=== PATIENT | female | born 1960 | race Caucasian/White ===

== ENCOUNTER 2017-08-04 10:29 | Outpatient (CLI) | payer MEDICARE, MEDICAID ==
--- NOTE | 2017-08-04 12:21 | RAD ---
2 VIEWS CHEST: Date: 08/04/17 COMPARISON: 09/03/15. HISTORY: Dyspnea. FINDINGS: Two views of the chest show normal sized cardiomediastinal silhouette. There is no evidence of consol idation, mass, or pleural effusion. Degenerative changes are seen in the spine. IMPRESSION: No evidence of acute cardiopulmonary disease. POS: [facility]
== END 2017-08-04 10:30 | disposition home or self-care (01) ==
LOC: RAD 10:29
PROVIDERS: ATTEND Internal Medicine Critical Care Medicine
DX: R06.00 Dyspnea, unspecified (principal)
CPT/HCPCS: 36415; 71046; 85025

== ENCOUNTER 2018-03-07 17:48 | Inpatient (IN) | payer MEDICARE, MEDICAID ==
[~2018-03-07 17:48] MED LIST: ISOVUE-370 76%-LOCM 1 ML ONE
[2018-03-07 18:34] LABS: #Eosinphils 0.1 thou/uL (0.0-0.7); #Lymphocytes 1.6 thou/uL (1.20-3.40); #Monocytes 1.3 thou/uL (0.11-0.59); #Neutrophils 11.5 thou/uL (1.40-6.50); %Basophils 0.1 % (0.0-1.0); %Eosinophils 0.7 % (0.0-10.0); %Neutrophils 79.2 % (42.0-75.0); Hemoglobin 11.3 g/dL (12.0-16.0); Mean Corpuscular HGB CONC 31.2 g/dL (32.0-36.0); Mean Corpuscular Hemoglobin 30.7 pg (27.0-31.0); Mean Corpuscular Volume 98.3 fL (78.0-98.0); Mean Platelet Volume 6.6 fL (7.4-10.4); Platelet Count 269 thou/uL (130-400); RBC Distribution Width 12.6 % (11.5-14.5); Red Blood Cell (RBC) Count 3.69 mill/uL (4.20-5.40); White Blood Cell (WBC) Count 14.5 thou/uL (4.8-10.8)
[2018-03-07 19:01] LABS: CKMB 0.5 ng/mL (0-6.6); Troponin I Less than 0.010 ng/mL (< 0.028)
--- NOTE | 2018-03-07 19:02 | RAD ---
PORTABLE CHEST: HISTORY: Shortness of breath times several hours. COMPARISON: 03/24/2014 FINDINGS: Heart size is enlarged. Lungs are clear of infiltrates. There are no signs of failure. IMPRESSION: Cardiomegaly. POS: COURT
[2018-03-07 19:06] LABS: ALT (SGPT) 10 U/L (8-55); AST (SGOT) 10 U/L (5-34); Alkaline Phosphatase 72 U/L (40-150); Anion Gap 15 mmol/L (10-20); BUN (Urea Nitrogen) 13 mg/dL (9.8-20.1); Bilirubin, Total 0.4 mg/dL (0.2-1.2); CK (CPK) 30 U/L (29-168); Calc. Creatinine Clearance 0 mL/min (70-130); Calcium 9.3 mg/dL (7.8-10.44); Carbon Dioxide 30 mmol/L (22-29); Chloride 97 mmol/L (98-107); Estimated GFR-MDRD 71; Globulin 3.7 g/dL (2.4-3.5); Glucose 199 mg/dL (70-105); Potassium 3.9 mmol/L (3.5-5.1); Protein, Total 7.7 g/dL (6.0-8.3); Sodium 138 mmol/L (136-145)
--- NOTE | 2018-03-07 19:54 | CT ---
CT ANGIO CHEST PERFORMED WITH INTRAVENOUS CONTRAST ENHANCEMENT WITH 3D RECONSTRUCTIONS: HISTORY: Shortness of breath. FINDINGS: The lung bases show atelectatic changes and some patchy pneumonitis type change. Areas of slightly g reater consolidation within the right base may just be on the basis of some atelectasis related to mu cus plugging or possibly consolidation related to pneumonia. These changes are less likely felt to b e on the basis of mass but would require followup, particularly the right lower lobe changes. There is fair pulmonary artery opacification. Body habitus limits detail peripherally, but no defini tive CT evidence for pulmonary embolus. The visualized liver parenchyma shows no focal abnormalities. Postoperative changes of the stomach a re seen. IMPRESSION: 1. No CT evidence for pulmonary embolus. 2. Bibasilar atelectatic lung changes with an area of consolidation within the right lower lobe, sug gesting possible pneumonia or more prominent atelectasis related to mucus plugging. A neoplastic pro cess is considered less likely, but follow-up films would be required. It is difficult to see any of these changes on the recent portable chest examination but probable followup after appropriate thera py with posterior-anterior and lateral chest may be sufficient for assessment. POS: COURT
[2018-03-07 20:31] LABS: Lactic Acid 1.2 mmol/L (0.5-2.2)
[2018-03-07] MEDS ORDERED: HYDROcodone/Acetaminophen 10/325 mg Tablet ONE (20:31)
[2018-03-07] MEDS ORDERED: Piperacillin/Tazobactam 4.5 GM VIAL ONE (20:31)
[2018-03-07] MEDS ORDERED: Ondansetron HCl/PF 4 MG/2 ML Vial IVP PRN (21:45)
[2018-03-07] MEDS ORDERED: Acetaminophen 325 MG TAB PO PRN (21:45)
[2018-03-07] MEDS ORDERED: Ondansetron ODT 4 MG TAB SL PRN (21:45)
[2018-03-07 21:56] VITALS: BMI 38.3
[2018-03-07 21:57] LABS: Troponin I Less than 0.010 ng/mL (< 0.028)
[2018-03-08] MEDS ORDERED: ALPRAZolam 1 MG TAB PO PRN (00:53)
[2018-03-08] MEDS ORDERED: Bisacodyl 5 MG TAB PO PRN (00:54)
[2018-03-08] MEDS ORDERED: Dextrose 50% Abboject 50 ML SYRINGE SLOW IVP PRN (00:54)
[2018-03-08] MEDS ORDERED: Dextrose 5% in Water 1,000 ML IV PRN (00:54)
[2018-03-08] MEDS ORDERED: HumaLOG 300 UNITS/3 ML VIAL SC PRN (00:54)
[2018-03-08 01:31] LABS: Troponin I Less than 0.010 ng/mL (< 0.028)
[2018-03-08] MEDS: HYDROcodone/Acetaminophen 10/325 mg Tablet PO PRN ×4 (02:13→21:34)
[2018-03-08 03:03] LABS: #Lymphocytes 0.8 thou/uL (1.20-3.40); #Monocytes 1.1 thou/uL (0.11-0.59); #Neutrophils 14.2 thou/uL (1.40-6.50); %Basophils 0.1 % (0.0-1.0); %Eosinophils 0.3 % (0.0-10.0); %Lymphocytes 4.9 % (21.0-51.0); %Neutrophils 87.7 % (42.0-75.0); Hemoglobin 10.8 g/dL (12.0-16.0); Mean Corpuscular HGB CONC 31.8 g/dL (32.0-36.0); Mean Corpuscular Hemoglobin 31.3 pg (27.0-31.0); Mean Corpuscular Volume 98.6 fL (78.0-98.0); Platelet Count 268 thou/uL (130-400); RBC Distribution Width 12.8 % (11.5-14.5); Red Blood Cell (RBC) Count 3.44 mill/uL (4.20-5.40); White Blood Cell (WBC) Count 16.2 thou/uL (4.8-10.8)
[2018-03-08 03:11] LABS: Anion Gap 15 mmol/L (10-20); BUN (Urea Nitrogen) 11 mg/dL (9.8-20.1); Calc. Creatinine Clearance 138 mL/min (70-130); Calcium 9.4 mg/dL (7.8-10.44); Carbon Dioxide 27 mmol/L (22-29); Chloride 99 mmol/L (98-107); Estimated GFR-MDRD 78; Glucose 202 mg/dL (70-105); Potassium 4.1 mmol/L (3.5-5.1); Sodium 137 mmol/L (136-145)
--- NOTE | 2018-03-08 05:22 | HP ---
CHIEF COMPLAINT: Shortness of breath. HISTORIAN: The patient. HISTORY OF PRESENT ILLNESS: This is a 58-year-old female with past medical history of breast CA, chr onic back pain, diabetes mellitus type 2, hyperlipidemia, hypertension, COPD, JS, being admitted for shortness of breath which occurred on the day of admission. Per patient, she was lying in bed, watc mika TV when she started having trouble with her breathing. The patient was using her breathing checo tment; however, it was not helping. Per records, patient recently had an echo done which showed no s igns of chronic heart failure. The patient states that she was really gasping for air during the who le episode and she was very scared that is why she called 911 for her to be brought to the hospital. The patient stated that she has had this episode in the past and patient admits to having sleep apne a that she used BiPAP for. Of note, patient received some breathing treatments en route to the [facility]. REVIEW OF SYSTEMS: Positive for shortness of breath with associated cough and productive sputum. Ot herwise, as documented in the HPI. All other systems were reviewed and were negative. PAST MEDICAL HISTORY: Chronic back pain, breast CA bilaterally, spinal stenosis, diabetes mellitus t ype 2, hyperlipidemia, hypertension, COPD, JS, wears BiPAP at night, obesity, and seizures. PAST SURGICAL HISTORY: Right tib-fib surgery, ventral hernia repair, cervical and lumbar surgery in the past, hysterectomy, mastectomy on both breasts. PSYCHIATRIC HISTORY: The patient is schizophrenic and paranoid. SOCIAL HISTORY: Patient lives at home. The patient denies any illicit drugs. The patient states th at she is a former smoker. She quit about 20 years ago. ALLERGIES: CODEINE, CYMBALTA, GABAPENTIN, LYRICA. CURRENT MEDICATIONS: The patient is on Januvia 100 mg orally, Lipitor 10 mg daily, metformin 1000 mg daily, Clozaril at bedtime, lamotrigine 25 mg b.i.d., metoprolol tartrate 25 mg daily, iron 65 mg, v itamin C 1 gram, [place], Ambien 10 mg, BuSpar 30 mg, Xanax 0.5 mg, Toujeo insulin glargine 20 units. PHYSICAL EXAMINATION: VITAL SIGNS: Blood pressure 146/111, pulse 125, respiratory rate of 26, temperature of 98.7, O2 sat 99 on BiPAP. GENERAL: The patient is lying in bed, had a BiPAP machine on. However, the patient was able to spea k in full sentences with the BiPAP off. The patient is obese, has a large neck mass. HEENT: Normocephalic, atraumatic. Pupils are equally round and reactive to light. Extraocular move ments are intact. No scleral icterus. Mucous membranes are moist. NECK: Mass is enlarged. LUNGS: The patient has some rhonchi in bilateral lower lobes. CARDIOVASCULAR: Patient is tachycardic. Regular rate and rhythm. No murmurs appreciated. ABDOMEN: Obese abdomen. Soft, nontender, positive bowel sounds in all quadrants. No masses palpate d. Abdomen is nondistended. No rigidity, no guarding. EXTREMITIES: Upper extremities and lower extremities: 5/5 upper extremity strength, 5/5 lower extre mity strength, good pulses in the upper extremities and lower extremities bilaterally. NEUROLOGIC: Cranial nerves II through XII grossly intact. No focal neurologic deficits noted. SKIN: Normal, warm, dry, and intact. No rashes. PSYCHIATRIC: Normal affect, alert and oriented x3. IMAGING: A 12-lead EKG showed a rate of 125, sinus tachycardia. ED COURSE: The patient was given Zosyn, [place], and Levaquin. LABORATORY DATA AND DIAGNOSTIC DATA: WBC 14.5, hemoglobin 11.3, hematocrit is 36.3, platelet count i s 269. D-dimer is 1.73. Sodium 138, potassium 3.9, chloride 97, carbon dioxide of 30, anion gap of 15, BUN is 13, creatinine 0.82, GFR 71, glucose 119. Chest x-ray showed cardiomegaly. Chest CTA shena wed no CTA evidence of pulmonary embolus. There is bibasilar atelectasis lung changes with area of c onsolidation within the right lower lobe suggesting possible pneumonia or more prominent atelectasis related to mucus plugging and neoplastic process is considered less likely, but follow up films will be required. It is difficult to see any of these changes on the recent portable chest examination an d portable follow up after appropriate therapy with posterior, anterior, and lateral chest may be suf ficient for assessment. ASSESSMENT AND PLAN: 1. This is a 58-year-old female who has been admitted for chronic obstructive pulmonary disease exac erbation. Patient is having chronic cough with productive sputum. The patient has been started on a ntibiotics. We will continue the patient on antibiotics. Tool Engine Lathe Set Up Operator has been consulted. We will follow up arc cutter's recommendations. We will continue DuoNeb treatments. We will give the jalil Hahn as well. 2. Pneumonia. Per CT of the chest, patient did have possible pneumonia. The patient is currently o n antibiotics. At this time, we will continue patient on antibiotics. 3. History of hypertension. We will monitor blood pressure. We will continue patient on home medic ations. 4. Obstructive sleep apnea. We will take the patient off BiPAP and will start patient on CPAP and w e will titrate patient's oxygen saturation between 88 and 92. 5. Chronic back pain, stable at this time. 6. Diabetes mellitus type 2. We will do insulin sliding scale. We will start the patient on insuli n medication. 7. Hyperlipidemia. We will continue patient on her current regimen. 8. Deep venous thrombosis and gastrointestinal prophylaxis. We will do Lovenox.
[2018-03-08] MEDS: Mometasone/Formoterol 120 PUFF INHALER INH SCH ×2 (07:14→18:33)
[2018-03-08] MEDS: Alogliptin 25 MG TAB PO SCH (08:50)
[2018-03-08] MEDS: lamoTRIgine 25 MG TAB PO SCH ×2 (08:50→21:01)
[2018-03-08] MEDS: Enoxaparin Sodium 40 MG/0.4 ML SYRINGE SC SCH (08:51)
[2018-03-08] MEDS: Atorvastatin Calcium 10 MG TAB PO SCH (08:51)
[2018-03-08] MEDS: busPIRone HCl 10 MG TAB PO SCH ×2 (08:51→21:02)
[2018-03-08] MEDS: Insulin Glargine 20 UNITS in Pre-Filled Syringe 1 EACH SC SCH (08:59)
[2018-03-08] MEDS ORDERED: INSULIN GLARGINE HUM REC ANLOG 20 UNIT SQ SCH (09:00)
--- NOTE | 2018-03-08 14:04 | PDOC.EVN ---
Event Note - Event Note Event Note: Feeling better overall. Breathing is better. Has had recurrent episodes of SOB for a year. Followed by Dr. Yates. Presents with SOB. CT with evidence of pneumonia and atelectasis. Continue nebs, oxygen, antibiotics. Pulm. consult pending.
[2018-03-08] MEDS ORDERED: CLOZAPINE 400 MG PO SCH (21:00)
--- NOTE | 2018-03-08 22:24 | CON ---
DATE OF CONSULTATION: 03/08/2018 HISTORY OF PRESENT ILLNESS: Bozena Peña is a pleasant 58-year-old female with history of obstructi ve lung disease. She says she has been short of breath for the past year. She is quite inactive bas ed on what she has relayed to me. She says she only gets out of the house once a week and she does n o exercise. She says she is always short of breath. She says she is feeling a little better than she did on admission. PAST MEDICAL HISTORY: 1. Remarkable for diabetes. 2. Lipid disorder. 3. Hypertension. 4. Chronic obstructive pulmonary disease. 5. History of breast cancer 6. History of sleep apnea. 7. History of obesity. 8. History of spinal stenosis. 9. History of tib-fib surgery in the past. 10. History of herniorrhaphy in the past. 11. History of cervical spine, lumbar spine surgery. 12. Status post hysterectomy. 13. Status post bilateral mastectomy. 14. History of paranoid schizophrenia. SOCIAL HISTORY: She is a nonsmoker, nondrinker, does not use drugs. ALLERGIES: Reports CODEINE, CYMBALTA, GABAPENTIN, LYRICA intolerance. MEDICATIONS: Prior to admission Januvia, Lipitor, metformin, Clozaril, lamotrigine, metoprolol, iron , vitamin C, Ambien, BuSpar, Toujeo. PHYSICAL EXAMINATION: VITAL SIGNS: She is afebrile, heart rate is 97, respiratory rate 16, oximetry is 96 on 3 liters, blo od pressure 116/70. She is in absolutely no distress. HEENT: Pupils reactive. Sclerae is anicteric. Extraocular movements appear to be full. NECK: Supple, no lymphadenopathy. LUNGS: Clear. HEART: Regular rhythm. S1 and S2 are normal. ABDOMEN: Soft and nontender. No masses. EXTREMITIES: No clubbing, cyanosis, or edema. NEUROLOGIC: Grossly nonfocal. IMAGING: CT is reviewed of the chest after a chest radiograph was done. She has infrahilar fullness that has the appearance of a mass on the right. She has bibasilar atelectatic changes. IMPRESSION: 1. Pneumonia. 2. Chronic obstructive pulmonary disease. 3. ? Lung mass. This will obviously need to be followed until it is clear. PLAN: Continue with nebulizer treatments and antibiotics. She is not on any steroids at this time, so these will be added in. I will be happy to follow with the other physicians caring for her.
[2018-03-09] MEDS: Mometasone/Formoterol 120 PUFF INHALER INH SCH ×2 (07:48→18:54)
--- NOTE | 2018-03-09 09:14 | PRG ---
DATE OF SERVICE: 03/09/2018 She is about the same. She has improved from the standpoint she is no longer needing the BiPAP. PHYSICAL EXAMINATION: VITAL SIGNS: Temperature 97.3, pulse 90, respirations 15, pulse ox 97% on 2 liters. HEENT: Unremarkable. NECK: No JVD. LUNGS: She has crackles in the right base. CARDIAC: S1 and S2 regular. ABDOMEN: Soft. EXTREMITIES: No edema. LABORATORY: No new labs were done today. ASSESSMENT: 1. Right lower lobe pneumonia. 2. Chronic obstructive pulmonary disease. PLAN: 1. Continue Levaquin and prednisone, and breathing treatments. 2. She should use CPAP at night. 3. Transfer to the medical floor. Probably needs a couple more days in the hospital.
[2018-03-09] MEDS: Saccharomyces boulardii 250 MG CAP PO SCH ×2 (09:16→20:44)
[2018-03-09] MEDS: busPIRone HCl 10 MG TAB PO SCH ×2 (09:16→20:44)
[2018-03-09] MEDS: Alogliptin 25 MG TAB PO SCH (09:16)
[2018-03-09] MEDS: Atorvastatin Calcium 10 MG TAB PO SCH (09:17)
[2018-03-09] MEDS: lamoTRIgine 25 MG TAB PO SCH ×2 (09:17→20:48)
[2018-03-09] MEDS: Enoxaparin Sodium 40 MG/0.4 ML SYRINGE SC SCH (09:18)
[2018-03-09] MEDS: Insulin Glargine 20 UNITS in Pre-Filled Syringe 1 EACH SC SCH (09:18)
[2018-03-09] MEDS: HYDROcodone/Acetaminophen 10/325 mg Tablet PO PRN ×3 (09:21→19:41)
[2018-03-09] MEDS: predniSONE 20 MG TAB PO SCH ×2 (09:22→20:44)
--- NOTE | 2018-03-09 09:33 | PDOC.PN ---
- Subjective Encounter Start Date: 03/09/18 Encounter Start Time: 09:30 Doing well. Feels better. - Objective Resuscitation Status: Resuscitation Status FULL:Full Resuscitation Vital Signs & Weight: Vital Signs (12 hours) Temp Pulse Resp BP Pulse Ox 03/09/18 08:17 97 03/09/18 07:49 99 03/09/18 07:46 90 15 99 03/09/18 07:33 97.3 F L 88 17 116/67 97 03/09/18 04:00 97.0 F L 85 18 120/72 100 03/09/18 00:00 97.1 F L 89 15 111/65 96 03/08/18 23:13 96 Weight Weight 253 lb 4.978 oz I&O: 03/08/18 03/09/18 03/10/18 06:59 06:59 06:59 Intake Total 510 410 Output Total 600 725 Balance -90 -315 Result Diagrams: 03/08/18 00:47 03/08/18 00:47 Additional Labs: Accuchecks 03/09/18 03/08/18 03/08/18 06:08 20:07 16:27 POC Glucose 117 H 144 H 170 H 03/08/18 10:34 POC Glucose 138 H Phys Exam - Physical Examination Constitutional: NAD Obese Respiratory: no wheezing, no rales, no rhonchi, clear to auscultation bilateral Cardiovascular: RRR, no significant murmur Gastrointestinal: soft, non-tender, no distention, positive bowel sounds Musculoskeletal: no edema Psychiatric: normal affect, A&O x 3 Dx/Plan (1) Pneumonia Code(s): J18.9 - PNEUMONIA, UNSPECIFIED ORGANISM Status: Acute Comment: Levaquin (2) COPD (chronic obstructive pulmonary disease) with emphysema Code(s): J43.9 - EMPHYSEMA, UNSPECIFIED Status: Chronic Comment: Nebs, steroids, oxygen (3) Diabetes type 2, controlled Code(s): E11.9 - TYPE 2 DIABETES MELLITUS WITHOUT COMPLICATIONS Status: Chronic Comment: Insulin (4) Generalized weakness Status: Chronic Comment: PT (5) JS (obstructive sleep apnea) Code(s): G47.33 - OBSTRUCTIVE SLEEP APNEA (ADULT) (PEDIATRIC) Status: Chronic Comment: CPAP - Plan * Transfer to floor
--- NOTE | 2018-03-09 15:12 | PQF ---
DATE: 03-09-18 ATTN: DR. DRAGAN MONTEJO Please exercise your independent, professional judgment in responding to the clarification form. Clinical indicators are provided on the bottom of this form for your review Please check appropriate box(s): [ ] Acute Respiratory Failure: [ ] with Hypoxia[ ] with Hypercapnia [ ] Acute Respiratory Failure due to: (etiology) [ x] Other diagnosis COPD exac [ ] Unable to determine In addition, please specify: Present on Admission (POA): [ ] Yes [ ] No [ ] Unable to determine For continuity of documentation, please document condition throughout progress notes and discharge summary. Thank You. CLINICAL INDICATORS - SIGNS / SYMPTOMS / LABS ER DX: PNEUMONIA, RESPIRATORY DISTRESS, SEPSIS ER: CAME IN FOR SOB, HAS TROUBLE TRYING TO COUGH AND HAS BEEN TAKING HER BREATHING TREATMENTS, WEARS CPAP AT NIGHT, MODERATE RESPIRATORY DISTRESS, RHONCHI PRESENT TO BILATERAL LOWER LOBES H&P: PT STATED THAT SHE WAS REALLY GASPING FOR AIR DURING THE WHOLE EPISODE AND SHE WAS VERY SCARED THAT IS WHY SHE CALLED 911 H&P: COPD EXACERBATION, PNEUMONIA, OBSTRUCTIVE SLEEP APNEA. WE WILL TAKE THE PATIENT OFF BIPAP AND WILL START PATIENT ON CPAP AND WE WILL TITRATE PATIENTS OXYGEN SAT BETWEEN 88-92. RESPIRATORY ASSESSMENT: 03-07-18: BIPAP 100% 03-08-18: O2 3L NC 94% 03-09-18: 02 2L NC 97% RISK FACTORS: H&P: PT STATED THAT SHE WAS REALLY GASPING FOR AIR DURING THE WHOLE EPISODE AND SHE WAS VERY SCARED THAT IS WHY SHE CALLED 911 H&P: COPD EXACERBATION, PNEUMONIA, OBSTRUCTIVE SLEEP APNEA. ER: WEARS CPAP AT NIGHT, TREATMENTS: MAR: DULERA INHALER, DUONEBS, PREDNISONE, SOLUMEDROL, LEVAQUIN RESPIRATORY ASSESSMENT: 03-07-18: BIPAP 100% 03-08: O2 3L NC 94% 03-09: 02 2L NC 97% (This form is maintained as a part of the permanent medical record) 2014 [employer]. All Rights Reserved MYNOR [email or web address] Office: [phone] [facility]
[2018-03-10] MEDS: HYDROcodone/Acetaminophen 10/325 mg Tablet PO PRN ×4 (07:09→23:45)
[2018-03-10] MEDS: Mometasone/Formoterol 120 PUFF INHALER INH SCH ×2 (07:52→22:21)
--- NOTE | 2018-03-10 08:55 | PRG ---
DATE OF SERVICE: 03/10/2018 She feels better, but does not feel up to going home yet. PHYSICAL EXAMINATION: VITAL SIGNS: Temperature is 97.0, pulse 80, respirations 16, O2 sat 96% on 2 liters, blood pressure 111/73. HEENT: Unremarkable. NECK: No JVD. LUNGS: A few crackles in the right base. CARDIAC: S1 and S2 regular. ABDOMEN: Soft. EXTREMITIES: No edema. LABORATORY DATA: No labs were done today. ASSESSMENT: 1. Right lower lobe pneumonia. 2. Chronic obstructive pulmonary disease. PLAN: The patient has orders to transfer to the medical floor, but that has not been done yet. She will continue CPAP at night for obstructive sleep apnea. She is on prednisone and antibiotics. I wo uld assume she could probably go home tomorrow.
[2018-03-10] MEDS: Saccharomyces boulardii 250 MG CAP PO SCH ×2 (08:58→21:31)
[2018-03-10] MEDS: predniSONE 20 MG TAB PO SCH ×2 (08:58→21:30)
[2018-03-10] MEDS: Alogliptin 25 MG TAB PO SCH (08:58)
[2018-03-10] MEDS: Enoxaparin Sodium 40 MG/0.4 ML SYRINGE SC SCH (08:59)
[2018-03-10] MEDS: lamoTRIgine 25 MG TAB PO SCH ×2 (08:59→21:30)
[2018-03-10] MEDS: Atorvastatin Calcium 10 MG TAB PO SCH (08:59)
[2018-03-10] MEDS: busPIRone HCl 10 MG TAB PO SCH ×2 (08:59→21:30)
[2018-03-10] MEDS: Insulin Glargine 20 UNITS in Pre-Filled Syringe 1 EACH SC SCH (09:31)
--- NOTE | 2018-03-10 09:57 | PDOC.PN ---
- Subjective Encounter Start Date: 03/10/18 Encounter Start Time: 09:10 Doing better. Was able to get up walk in the cuellar yesterday. Went well, but still weak and ASENCIO. - Objective Resuscitation Status: Resuscitation Status FULL:Full Resuscitation Vital Signs & Weight: Vital Signs (12 hours) Temp Pulse Resp BP Pulse Ox 03/10/18 07:52 80 16 03/10/18 07:42 96 03/10/18 07:41 97.0 F L 82 18 111/73 94 L 03/10/18 04:00 97.2 F L 75 16 122/71 100 03/10/18 02:12 77 18 99 03/10/18 00:00 97.2 F L 73 14 126/77 99 03/09/18 23:57 75 15 99 Weight Weight 239 lb 13.807 oz I&O: 03/09/18 03/10/18 03/11/18 06:59 06:59 06:59 Intake Total 410 1380 Output Total 725 1300 Balance -315 80 Result Diagrams: 03/08/18 00:47 03/08/18 00:47 Additional Labs: Accuchecks 03/10/18 03/09/18 03/09/18 06:42 20:36 16:44 POC Glucose 148 H 221 H 180 H 03/09/18 10:40 POC Glucose 121 H Phys Exam - Physical Examination Constitutional: NAD Obese. Respiratory: no wheezing, no rales, no rhonchi, clear to auscultation bilateral Cardiovascular: RRR, no significant murmur Gastrointestinal: soft, non-tender, no distention, positive bowel sounds Musculoskeletal: no edema Psychiatric: normal affect, A&O x 3 Dx/Plan (1) Pneumonia Code(s): J18.9 - PNEUMONIA, UNSPECIFIED ORGANISM Status: Acute Comment: Levaquin (2) COPD (chronic obstructive pulmonary disease) with emphysema Code(s): J43.9 - EMPHYSEMA, UNSPECIFIED Status: Chronic Comment: Nebs, steroids, oxygen (3) Diabetes type 2, controlled Code(s): E11.9 - TYPE 2 DIABETES MELLITUS WITHOUT COMPLICATIONS Status: Chronic Comment: Insulin (4) Generalized weakness Status: Chronic Comment: PT (5) JS (obstructive sleep apnea) Code(s): G47.33 - OBSTRUCTIVE SLEEP APNEA (ADULT) (PEDIATRIC) Status: Chronic Comment: CPAP - Plan * Continue current plan. * Anticipate discharge tomorrow. * Will need outpatient pulmonary rehab.
--- NOTE | 2018-03-11 08:31 | PRG ---
DATE OF SERVICE: 03/11/2018 The patient remains in the hospital for treatment of pneumonia. She is doing well. She got up and w alked yesterday. Her cough is minimal and she says that she wants to go home. PHYSICAL EXAMINATION: VITAL SIGNS: Temperature 97.9, pulse 89, respirations 18, O2 sat 97%, blood pressure 104/58. HEENT: Unremarkable. NECK: No JVD. LUNGS: Clear without wheezing or rhonchi. CARDIAC: S1 and S2 regular. ABDOMEN: Soft. EXTREMITIES: No edema. ASSESSMENT: 1. Pneumonia. 2. Underlying chronic obstructive pulmonary disease. RECOMMENDATION: 1. Would complete 7 days of antibiotics. 2. Wean prednisone over 2 weeks. 3. She is safe to go home from my standpoint today. She needs to follow up with me in 3 weeks with a chest x-ray.
[2018-03-11] MEDS: Enoxaparin Sodium 40 MG/0.4 ML SYRINGE SC SCH (09:02)
[2018-03-11] MEDS: Alogliptin 25 MG TAB PO SCH (09:02)
[2018-03-11] MEDS: lamoTRIgine 25 MG TAB PO SCH (09:02)
[2018-03-11] MEDS: Atorvastatin Calcium 10 MG TAB PO SCH (09:02)
[2018-03-11] MEDS: Saccharomyces boulardii 250 MG CAP PO SCH (09:03)
[2018-03-11] MEDS: predniSONE 20 MG TAB PO SCH (09:03)
[2018-03-11] MEDS: busPIRone HCl 10 MG TAB PO SCH (09:03)
[2018-03-11] MEDS: Insulin Glargine 20 UNITS in Pre-Filled Syringe 1 EACH SC SCH (09:04)
[2018-03-11] MEDS: HYDROcodone/Acetaminophen 10/325 mg Tablet PO PRN (09:14)
[2018-03-11] MEDS: Mometasone/Formoterol 120 PUFF INHALER INH SCH (10:32)
[2018-03-11 10:59] VITALS: BP 110/60; TEMP 97.8
== END 2018-03-11 11:25 | disposition home or self-care (01) | DRG 194 ==
LOC: ERS 17:48 → IMCU/EMU 21:43 → T4-A 03-10 18:13
PROVIDERS: ADMIT Internal Medicine; ATTEND Internal Medicine
DX: J18.9 Pneumonia, unspecified organism (principal); J44.1 Chronic obstructive pulmonary disease with (acute) exacerbation; F20.0 Paranoid schizophrenia; Z87.891 Personal history of nicotine dependence; E78.00 Pure hypercholesterolemia, unspecified; I10 Essential (primary) hypertension; Z85.3 Personal history of malignant neoplasm of breast; E11.9 Type 2 diabetes mellitus without complications; E78.5 Hyperlipidemia, unspecified; G47.33 Obstructive sleep apnea (adult) (pediatric); E66.9 Obesity, unspecified; R91.8 Other nonspecific abnormal finding of lung field; Z68.37 Body mass index [BMI] 37.0-37.9, adult
CPT/HCPCS: 36415; 36416; 71045; 71275; 80048; 80053; 82550; 82553; 83605; 83880; 84484; 85025; 85379; 87040; 87149; 93005; 94640; 94660; 94760; 96365; 96366; 99292; A4216; G8978-GP-CM; G8979-GP-CK; J1650; J1956; J2543; J2920; J7506; J7620

== ENCOUNTER 2019-02-18 17:26 | Inpatient (IN) | payer MEDICARE, MEDICAID ==
[2019-02-18 18:07] LABS: #Basophils 0.1 thou/uL (0.0-0.2); #Eosinphils 0.1 thou/uL (0.0-0.7); #Monocytes 0.6 thou/uL (0.11-0.59); #Neutrophils 2.8 thou/uL (1.40-6.50); %Basophils 1.4 % (0.0-1.0); %Eosinophils 2.5 % (0.0-10.0); %Lymphocytes 36.2 % (21.0-51.0); %Monocytes 10.2 % (0.0-10.0); %Neutrophils 49.7 % (42.0-75.0); Hemoglobin 11.7 g/dL (12.0-16.0); Mean Corpuscular HGB CONC 33.6 g/dL (32.0-36.0); Mean Corpuscular Hemoglobin 31.8 pg (27.0-31.0); Mean Corpuscular Volume 94.8 fL (78.0-98.0); Mean Platelet Volume 6.3 fL (7.4-10.4); Platelet Count 275 thou/uL (130-400); RBC Distribution Width 13.4 % (11.5-14.5); Red Blood Cell (RBC) Count 3.68 mill/uL (4.20-5.40); White Blood Cell (WBC) Count 5.6 thou/uL (4.8-10.8)
[2019-02-18 18:21] LABS: ALT (SGPT) 16 U/L (8-55); AST (SGOT) 21 U/L (5-34); Albumin 4.6 g/dL (3.4-4.8); Alkaline Phosphatase 52 U/L (40-150); Anion Gap 16 mmol/L (10-20); BUN (Urea Nitrogen) 17 mg/dL (9.8-20.1); Bilirubin, Total 0.5 mg/dL (0.2-1.2); CK (CPK) 56 U/L (29-168); Calc. Creatinine Clearance 0 mL/min (70-130); Calcium 10.6 mg/dL (7.8-10.44); Carbon Dioxide 23 mmol/L (23-31); Chloride 96 mmol/L (98-107); Estimated GFR-MDRD 31; Globulin 2.7 g/dL (2.4-3.5); Glucose 90 mg/dL (80-115); Potassium 4.1 mmol/L (3.5-5.1); Protein, Total 7.3 g/dL (6.0-8.3); Sodium 131 mmol/L (136-145)
--- NOTE | 2019-02-18 18:34 | RAD ---
EXAM: Chest 2 views: HISTORY: Chest pain COMPARISON: 06/15/2018 FINDINGS: There is a normal-sized cardiomediastinal silhouette. There is no evidence of consolidation, mass, or pleural effusion. Degenerative changes are seen in the spine. IMPRESSION: No evidence of acute cardiopulmonary disease
[2019-02-18] MEDS ORDERED: Nitroglycerin 2% Ointment 1 INCH/1 GM Packet ONE (19:17)
[2019-02-18] MEDS ORDERED: Aspirin Chewable 81 MG TAB ONE (19:17)
[2019-02-18 20:04] LABS: Bilirubin Negative (Negative); Blood, Urine Negative (Negative); Clarity Clear (Clear); Glucose, Urine (Dipstick) Normal (Negative); Leukocyte Negative Leu/uL (Negative); Nitrite Negative (Negative); Protein, Urine (Dipstick) Negative (Neg-Trace); Urobilinogen Normal mg/dL (Less than 2)
[2019-02-18] MEDS ORDERED: Acetaminophen 325 MG TAB PO PRN (20:45)
[2019-02-18] MEDS ORDERED: Acetaminophen 500 MG TAB ONE (20:47)
[2019-02-18 21:29] LABS: Troponin I Less than 0.010 ng/mL (< 0.028)
[2019-02-18 22:10] VITALS: BMI 27.0
[2019-02-18] MEDS ORDERED: ALPRAZolam 1 MG TAB PO PRN (23:16)
[2019-02-19 00:31] LABS: Troponin I Less than 0.010 ng/mL (< 0.028)
[2019-02-19] MEDS ORDERED: Zolpidem Tartrate 5 MG TAB PO SCH ×2 (01:30→21:00)
[2019-02-19] MEDS ORDERED: HumaLOG 300 UNITS/3 ML VIAL SC PRN ×2 (01:31)
[2019-02-19] MEDS ORDERED: Dextrose 50% Abboject 50 ML SYRINGE SLOW IVP PRN (01:31)
[2019-02-19] MEDS ORDERED: Dextrose 5% in Water 1,000 ML IV PRN (01:31)
[2019-02-19] MEDS: HYDROcodone/Acetaminophen 10/325 mg Tablet PO PRN ×3 (01:38→19:24)
[2019-02-19] MEDS ORDERED: Acetaminophen 650 MG Suppository PR PRN (02:05)
[2019-02-19] MEDS ORDERED: Ondansetron PF 4 MG/2 ML Vial IVP PRN (02:05)
[2019-02-19] MEDS ORDERED: Sodium Chloride 0.9% 1,000 ML IV SCH ×2 (02:15→06:00)
[2019-02-19] MEDS: Sodium Chloride 0.9% 1,000 ML IV SCH ×2 (04:17→21:05)
[2019-02-19 05:50] LABS: #Eosinphils 0.1 thou/uL (0.0-0.7); #Lymphocytes 1.8 thou/uL (1.20-3.40); #Monocytes 0.5 thou/uL (0.11-0.59); %Basophils 0.3 % (0.0-1.0); %Eosinophils 2.9 % (0.0-10.0); %Lymphocytes 40.8 % (21.0-51.0); %Monocytes 10.5 % (0.0-10.0); %Neutrophils 45.6 % (42.0-75.0); Hemoglobin 10.4 g/dL (12.0-16.0); Mean Corpuscular HGB CONC 34.7 g/dL (32.0-36.0); Mean Corpuscular Hemoglobin 32.9 pg (27.0-31.0); Mean Corpuscular Volume 94.8 fL (78.0-98.0); Mean Platelet Volume 6.4 fL (7.4-10.4); Platelet Count 220 thou/uL (130-400); RBC Distribution Width 13.3 % (11.5-14.5); Red Blood Cell (RBC) Count 3.16 mill/uL (4.20-5.40); White Blood Cell (WBC) Count 4.4 thou/uL (4.8-10.8)
[2019-02-19 06:15] LABS: Anion Gap 14 mmol/L (10-20); BUN (Urea Nitrogen) 16 mg/dL (9.8-20.1); Calc. Creatinine Clearance 45 mL/min (70-130); Calcium 9.6 mg/dL (7.8-10.44); Carbon Dioxide 23 mmol/L (23-31); Chloride 99 mmol/L (98-107); Estimated GFR-MDRD 33; Glucose 78 mg/dL (80-115); Magnesium 1.8 mg/dL (1.6-2.6); Potassium 3.8 mmol/L (3.5-5.1); Sodium 132 mmol/L (136-145)
--- NOTE | 2019-02-19 06:29 | HP ---
TIME OF ADMISSION: 2300 hours. PRIMARY CARE PHYSICIAN: Douglas Sharma MD CHIEF COMPLAINT: Bilateral shoulder and chest pain. HISTORY OF PRESENT ILLNESS: Ms. Peña is a 59-year-old woman, with a known history of diabetes, COPD, hyperlipidemia, and hypertension, who presents complaining of intermittent pain in her shoulders and chest for the last 3 weeks. The patient is a poor historian and unable to explain her symptoms. She gives very vague descriptions stating she has felt "something" on her chest, when asked if it felt like pain, she said she did not know. When asked if it felt like discomfort, she said, "yeah it felt like something was not right." She also reports feeling "sick" for the last few days, but unable to state if it was due to nausea, vomiting, pain, or shortness of breath. Unable to state if she was lightheaded or dizzy. She states she has had discomfort in her right shoulder as well as her left shoulder for the last 3 weeks and at times the pain radiates across her back. She reports having a previous injury to her left shoulder but states the pain today which brought her in is significant in her arm along the biceps region. She has some weakness with movement of the left arm. States there have been times when she has been unable to lift her arm. Previous imaging done of the left upper extremity in 02/2016 with an MRI had demonstrated a mildly displaced avulsion fracture of the greater tuberosity at the supraspinatus tendon insertion which displace medially 15 mm. There was also a second minimally displaced avulsion fracture of the greater tuberosity at the infraspinatus insertion, superior labrum from the glenoid extending into the posterior band of inferior glenohumeral ligament, it was avulsed off the glenoid. There was loss of normal integrity of the axillary pouch. There was a healing fracture to the acromion. The patient denies having any injuries more recently or heavy lifting that would have brought on this pain. She denies any numbness or tingling in her arm or hand. It is very tender to touch. In the emergency department, she was noted to be hypertensive with a blood pressure of 194/76. She was treated for chest pain and given 1000 mg of Tylenol Extra Strength, 325 mg of aspirin, and Nitro-Bid. An EKG was done showing a right bundle-branch block. Heart rate was 58. IMAGING DATA: Chest x-ray done on 02/18/2019 showed no evidence of acute cardiopulmonary disease. PAST MEDICAL HISTORY: 1. CKD. 2. Chronic back pain. 3. History of bilateral breast cancer. 4. Spinal stenosis. 5. Type 2 diabetes mellitus. 6. Hyperlipidemia. 7. Hypertension. 8. COPD. 9. Sleep apnea, uses CPAP at night. 10. Paranoid schizophrenia. 11. Anxiety. PAST SURGICAL HISTORY: 1. Right tib-fib surgery. 2. Left lower leg surgery. 3. Cervical and lumbar spine surgery. 4. Ventral hernia. 5. Multiple inguinal hernia repairs. 6. Hysterectomy. 7. Mastectomy bilaterally. SOCIAL HISTORY: The patient is a former smoker. She denies any tobacco use at present. Denies any alcohol consumption or illicit drug use. ALLERGIES: 1. CODEINE. 2. CYMBALTA. 3. GABAPENTIN. 4. LYRICA. 5. TRAMADOL. CURRENT MEDICATIONS: Unable to verify. PHYSICAL EXAMINATION: GENERAL: The patient appears well developed, well nourished. She is in no acute distress. VITAL SIGNS: Temperature 98.4, pulse 67, respirations 19, O2 saturation 97% on room air, blood pressure 145/67. HEENT: Normocephalic and atraumatic. Pupils are equal, round, reactive to light. Sclerae without icterus. Oropharynx is clear. NECK: Supple. LUNGS: Clear to auscultation bilaterally without wheezes, rales, or rhonchi. CARDIAC: Regular rate and rhythm. ABDOMEN: Soft, nontender, nondistended. Normoactive bowel sounds present. EXTREMITIES: No lower leg swelling or edema. Left upper extremity very tender to light palpation along the lateral upper arm. The patient guarding and asking not to be touched. NEUROLOGIC: Alert and oriented x3. Flat affect. Left upper extremity notable for weakness. Sensation intact. Limited range of motion of the left upper extremity due to weakness and pain. SKIN: Normal. Warm and dry. LABORATORY DATA: White blood count 5.6, hemoglobin 11.7, hematocrit 34.8, platelets 275. Sodium 131, potassium , chloride 96, BUN 17, creatinine 1.66, GFR 31, calcium 10.6. LFTs unremarkable. Troponin negative x2. Urinalysis unremarkable. IMAGING DATA: No intrathoracic abnormalities. IMPRESSION AND PLAN: Ms. Peña is a 59-year-old woman, who has been referred for management of the followin. Chest pain. The patient reports having pain radiating across her chest from the right side to the left which is separate from the pain she is experiencing in her left arm, which is associated with tenderness. She states the chest pain has been going on intermittently for the last 3 weeks. Difficulty obtaining more detailed information including characterization of pain and severity as well as frequency. We will continue to trend troponins. On exam, she definitely has significant tenderness to the left arm and that is what she states brought her in today. We will defer to day team if further cardiac investigations are warranted. With regard to her shoulder pain, she states that is the reason she came into the hospital. She has tenderness on exam. We will order further imaging with an MRI of the cervical spine and left shoulder/upper arm. For her pain, we will resume her home dose of [place]. Continue to monitor. 2. Diabetes mellitus. We will resume home medications once verified. For now, we will initiate insulin sliding scale. 3. Hypertension. We will resume home medications once ensured. 4. Chronic kidney disease. The patient with elevated creatinine at 1.66. We will give gentle IV hydration. 5. Gastrointestinal prophylaxis with famotidine. 6. Deep venous thrombosis prophylaxis with mechanical SCDs. 7. Code status full. Her surrogate decision maker is her son Vicente Nicole. The patient's case discussed with attending who agrees with plan of care as described above. Job ID: [id number]
[2019-02-19] MEDS ORDERED: ALPRAZolam 1 MG TAB PO PRN (07:51)
[2019-02-19] MEDS ORDERED: hydrALAZINE 20 MG/ML VIAL SLOW IVP PRN (07:53)
[2019-02-19] MEDS ORDERED: Loperamide HCl 2 MG CAP PO PRN (07:53)
[2019-02-19] MEDS ORDERED: Calcium Carbonate 500 MG ChewTAB PO PRN (07:53)
[2019-02-19] MEDS ORDERED: Sodium Chloride 0.65% Nasal 44 ML BOT EA NARE PRN (07:53)
[2019-02-19] MEDS ORDERED: Loratadine 10 MG TAB PO PRN (07:53)
[2019-02-19] MEDS ORDERED: Cepastat Lozenges 1 LOZ PO PRN (07:53)
[2019-02-19] MEDS ORDERED: Artificial Tears 18 DROP/0.9 ML EA EYE PRN (07:53)
[2019-02-19] MEDS ORDERED: Diabetic Tussin 200 MG/10 ML UDCUP PO PRN (07:53)
[2019-02-19] MEDS ORDERED: Bisacodyl 5 MG TAB PO PRN (07:53)
[2019-02-19] MEDS ORDERED: Non-Formulary Item 1 EACH (Cyanocobalamin (Vitamin B-12) [Vitamin B-12] 1,000 MCG) PO SCH (09:00)
[2019-02-19] MEDS ORDERED: busPIRone HCl 10 MG TAB PO SCH (09:00)
[2019-02-19] MEDS ORDERED: Non-Formulary Item 1 EACH (Buspirone Hcl [Buspirone Hcl] 30 MG) PO SCH (09:00)
[2019-02-19] MEDS ORDERED: Famotidine/PF 20 mg/2ml Vial SLOW IVP SCH (09:00)
[2019-02-19] MEDS ORDERED: INSULIN GLARGINE HUM REC ANLOG 20 UNIT SQ SCH (09:00)
[2019-02-19] MEDS ORDERED: lamoTRIgine 25 MG TAB PO SCH (09:00)
[2019-02-19] MEDS ORDERED: Non-Formulary Item 1 EACH (Budesonide-Formoterol [Symbicort 160-4.5] 2 PUFF) INH SCH (09:00)
[2019-02-19] MEDS: Cyanocobalamin (Vitamin B-12) 1,000 MCG TAB PO SCH (09:55)
[2019-02-19] MEDS: Aspirin 81 mg Enteric Coated Tablet PO SCH (09:55)
[2019-02-19] MEDS: Atorvastatin Calcium 10 MG TAB PO SCH (09:56)
[2019-02-19] MEDS: Famotidine 20 MG TAB PO SCH (09:56)
[2019-02-19] MEDS: Ondansetron ODT 4 MG TAB PO PRN (11:05)
[2019-02-19] MEDS: ALPRAZolam 0.5 MG TAB PO PRN ×2 (11:06→21:04)
--- NOTE | 2019-02-19 12:03 | PDOC.HOSPP ---
- Subjective Encounter Date: 02/19/19 Encounter Time: 07:15 Subjective: this morning she was having nausea, she was not feeling good, she was not describing well her complaints - Objective Vital Signs & Weight: Vital Signs (12 hours) Temp Pulse Resp BP Pulse Ox 02/19/19 08:23 98.5 F 67 16 186/80 H 98 02/19/19 04:21 98.1 F 74 17 176/77 H 97 Weight Weight 172 lb 8 oz I&O: 02/18/19 02/19/19 02/20/19 06:59 06:59 06:59 Intake Total 225 290 Output Total 400 Balance -175 290 Result Diagrams: 02/19/19 05:32 02/19/19 05:32 Additional Labs: Accuchecks 02/19/19 02/19/19 10:43 01:56 POC Glucose 102 66 L Radiology Reviewed by me: Yes EKG Reviewed by me: Yes Hospitalist ROS - Review of Systems Eyes: denies: pain, vision change, conjunctivae inflammation, eyelid inflammation, redness, other ENT: denies: ear pain, ear discharge, nose pain, nose discharge, nose congestion , mouth pain, mouth swelling, throat pain, throat swelling, other Respiratory: denies: cough, dry, shortness of breath, hemoptysis, SOB with excertion, pleuritic pain, sputum, wheezing, other Cardiovascular: denies: chest pain, palpitations, orthopnea, paroxysmal noc. dyspnea, edema, light headedness, other Gastrointestinal: reports: nausea Genitourinary: denies: dysuria, frequency, incontinence, hematuria, retention, other Musculoskeletal: denies: neck pain, shoulder pain, arm pain, back pain, hand pain, leg pain, foot pain, other - Medication Medications: Active Medications Generic Name Dose Route Start Last Admin Trade Name Freq PRN Reason Stop Dose Admin Hydrocodone Bitart/Acetaminophen 1 tab 02/18/19 23:16 02/19/19 11:06 [place] 10/325 PO 1 tab Q4H PRN Administration Moderate Pain (4-6) Alprazolam 0.5 mg 02/19/19 08:25 02/19/19 11:06 Xanax PO 0.5 mg BIDPRN PRN Administration Anxiety/Insomnia Aspirin 81 mg 02/19/19 09:00 02/19/19 09:55 Ecotrin PO 81 mg DAILY KERLINE Administration Atorvastatin Calcium 10 mg 02/19/19 09:00 02/19/19 09:56 Lipitor PO 10 mg DAILY KERLINE Administration Buspirone HCl 30 mg 02/19/19 09:00 02/19/19 09:57 Buspar PO 30 mg BID KERLINE Administration Cyanocobalamin 1,000 mcg 02/19/19 09:00 02/19/19 09:55 Vitamin B-12 PO 1,000 mcg DAILY KERLINE Administration Famotidine 20 mg 02/19/19 09:00 02/19/19 09:56 Pepcid PO 20 mg DAILY KERLINE Administration Sodium Chloride 1,000 mls @ 75 mls/hr 02/19/19 02:23 02/19/19 04:17 Normal Saline 0.9% IV 1,000 mls .[id number] KERLINE Administration Metoprolol Succinate 25 mg 02/19/19 09:00 02/19/19 09:56 Toprol Xl PO 25 mg DAILY KERLINE Administration Mirabegron 25 mg 02/19/19 09:00 02/19/19 09:57 Myrbetriq Er PO 25 mg DAILY KERLINE Administration Ondansetron HCl 4 mg 02/19/19 02:05 02/19/19 11:05 Zofran Odt PO 4 mg Q6H PRN Administration Nausea/Vomiting Sodium Chloride 10 ml 02/19/19 09:00 02/19/19 09:58 Flush - Normal Saline IVF Not Given Q12HR KERLINE - Exam General Appearance: NAD, awake alert Eye: PERRL, anicteric sclera ENT: normocephalic atraumatic, no oropharyngeal lesions Neck: supple, symmetric, no JVD Heart: RRR, no murmur, no gallops Respiratory: CTAB, no wheezes, no rales, no ronchi Gastrointestinal: soft, non-tender, non-distended, normal bowel sounds, no palpable masses Extremities: no cyanosis, no clubbing, no edema Skin: normal turgor, no lesions Neurological: CN's grossly intact, normal sensation to touch, no focal deficits Musculoskeletal: normal tone, normal strength Psychiatric: normal affect, normal behavior Hosp A/P (1) Left arm pain Code(s): M79.602 - PAIN IN LEFT ARM Status: Acute (2) Chest pain Code(s): R07.9 - CHEST PAIN, UNSPECIFIED Status: Acute (3) Anemia, normocytic normochromic Code(s): D64.9 - ANEMIA, UNSPECIFIED Status: Chronic (4) Hypertension Code(s): I10 - ESSENTIAL (PRIMARY) HYPERTENSION Status: Chronic (5) Anxiety and depression Code(s): F41.9 - ANXIETY DISORDER, UNSPECIFIED; F32.9 - MAJOR DEPRESSIVE DISORDER, SINGLE EPISODE, UNSPECIFIED Status: Chronic (6) CKD (chronic kidney disease) stage 3, GFR 30-59 ml/min Code(s): N18.3 - CHRONIC KIDNEY DISEASE, STAGE 3 (MODERATE) Status: Chronic - Plan old records reviewed/req home medication reconciled admitting ordered MRI, I doubt will find anything will order tomorrow stress test so far work up is negative continue IVF and repeat labs tomorrow medication reviewed as above symptomatic treatment hold toprol xl due to bradycardia
--- NOTE | 2019-02-19 13:37 | MRI ---
MRI CERVICAL SPINE WITHOUT CONTRAST: HISTORY: Neck pain. Shoulder pain and arm pain. COMPARISON: CT of the cervical spine 05/29/2019. FINDINGS: Exam is limited due to motion artifact. Cerebellar tonsils terminate at the level of the foramen mag num. No marrow infiltrative process. No paraspinal muscle edema. No adenopathy. Ankylosis of the C5 and C6 vertebral bodies. Ossification of the anterior longitudinal ligaments at multiple levels of the spine. Levels are as follows: C2-3: Mild uncinate process hypertrophy. Moderate facet arthropathy. No neural foraminal or spinal canal narrowing. C3-4: Moderate uncinate process hypertrophy. Moderate facet arthropathy. Moderate bilateral neural foraminal narrowing. C4-5: Moderate degenerative disk space height loss. Moderate facet arthrosis. Moderate broad-based posterior do complex. There is ligamentum flavum hypertrophy at this level. There is complete effa cement of the dorsal and ventral CSF spaces now measuring 6-7 mm. There is cord abutment without abn ormal edema. There is high-grade facet arthrosis causing severe neural foraminal narrowing on the le ft and moderate on the right. C5-6: Fusion of the bodies. No neuroforaminal or spinal canal narrowing. C6-7: Abnormal edema within the disk likely due to increased motion at this level due to ankylosis o f the C5-6 disk space. Mild facet arthrosis. No significant neural foraminal or spinal canal narrow ing appreciated. IMPRESSION: 1. Multilevel spondylosis greatest at C4-5 with disk-osteophyte complex as well as segmental hypertr ophy completely effacing the dorsal and ventral cerebrospinal fluid space 6-7 mm. 2. Multilevel neural foraminal narrowing, greatest at C4-5 due to high-grade facet arthropathy. 3. Abnormal edema within C6-7 disk space, likely due to abnormal motion from the C5-6 osseous fusion . POS: HOME
--- NOTE | 2019-02-19 14:06 | MRI ---
MRI LEFT SHOULDER WITHOUT CONTRAST: HISTORY: Pain. COMPARISON: MRI left shoulder from 2016. FINDINGS: BICEPS TENDON: High-grade extraarticular biceps tenosynovitis and interstitial tearing. High-grade tearing of the i ntraarticular tendon. LABRUM: There is circumference high-grade labral tearing throughout its substance, greatest at the posterior inferior labrum. ROTATOR CUFF: There is a full-thickness full-width supraspinatus tendon tear from the footprint with some scar and granulation in situ bridging the torn severely tendinotic fibers. The undersurface of the infraspina tus tendon is ossified with chronic full-thickness tearing as well as some granulation tissue. The g ranulation tissue prevents significant retraction of the supraspinatus fibers after only retracting 1 cm, although the infraspinatus fibers are 1-2 cm displaced. BONES: Type III acromion narrowing the subacromial space. Moderate degeneration of the acromioclavicular iza int. CARTILAGE: There are a few high-grade cartilage fissures of the posterior glenoid. MUSCLES: Greater than 50% atrophy of the supraspinatus and infraspinatus muscles. IMPRESSION: 1. Full-thickness, full-width supraspinatus and infraspinatus tendon tears from the footprint with s ome scar and granulation in situ. There is subsequent greater than 50% atrophy of the supraspinatus and infraspinatus muscles. 2. Ossification of the distal infraspinatus tendon. 3. Circumferential labral tearing through the substance. 4. Type 3 acromion narrowing the subacromial space. 5. Large erosion of the greater tuberosity footprint from chronic delamination and tearing of the ro tator cuff. 6. Chronic tear of superior glenohumeral ligament portion of the biceps slaas with reactive edema a nd marrow change at the intertrabecular groove from chronic perching, tendinosis, and tearing. 7. High-grade tearing of the intraarticular biceps tendon. 8. A few high-grade chondral fissures in the posterior glenoid. POS: HOME
[2019-02-19] MEDS: Mometasone/Formoterol 120 PUFF INHALER INH SCH (18:06)
[2019-02-19] MEDS ORDERED: CLOZAPINE 400 MG PO SCH ×2 (21:00)
[2019-02-19] MEDS: Zolpidem Tartrate 5 MG TAB PO SCH (22:15)
[2019-02-20 06:01] LABS: #Eosinphils 0.1 thou/uL (0.0-0.7); #Lymphocytes 1.5 thou/uL (1.20-3.40); #Monocytes 0.4 thou/uL (0.11-0.59); #Neutrophils 2.4 thou/uL (1.40-6.50); %Basophils 0.6 % (0.0-1.0); %Eosinophils 2.7 % (0.0-10.0); %Lymphocytes 33.8 % (21.0-51.0); %Monocytes 8.3 % (0.0-10.0); %Neutrophils 54.6 % (42.0-75.0); Hemoglobin 11.3 g/dL (12.0-16.0); Mean Corpuscular HGB CONC 33.4 g/dL (32.0-36.0); Mean Corpuscular Volume 95.6 fL (78.0-98.0); Mean Platelet Volume 6.4 fL (7.4-10.4); Platelet Count 244 thou/uL (130-400); RBC Distribution Width 13.5 % (11.5-14.5); Red Blood Cell (RBC) Count 3.54 mill/uL (4.20-5.40); White Blood Cell (WBC) Count 4.5 thou/uL (4.8-10.8)
[2019-02-20] MEDS: Mometasone/Formoterol 120 PUFF INHALER INH SCH ×2 (06:15→18:41)
[2019-02-20 06:19] LABS: Anion Gap 14 mmol/L (10-20); BUN (Urea Nitrogen) 18 mg/dL (9.8-20.1); Calc. Creatinine Clearance 43 mL/min (70-130); Carbon Dioxide 24 mmol/L (23-31); Cardiac Risk 2.3 (Less than 4.5); Chloride 100 mmol/L (98-107); Cholesterol 218 mg/dl (< 200 Desired); Estimated GFR-MDRD 31; Glucose 85 mg/dL (80-115); HDL Cholesterol 95 mg/dL (>60 Neg Risk); LDL Cholesterol, Calculated 110 mg/dL; Sodium 134 mmol/L (136-145); Triglycerides 66 mg/dL (Less than 150)
[2019-02-20] MEDS: ALPRAZolam 0.5 MG TAB PO PRN ×2 (08:13→20:27)
[2019-02-20] MEDS: HYDROcodone/Acetaminophen 10/325 mg Tablet PO PRN ×3 (08:13→21:00)
[2019-02-20] MEDS ORDERED: ADENOSINE 60 MG/20 ML VIAL ONE (09:52)
[2019-02-20] MEDS: Sodium Chloride 0.9% 1,000 ML IV SCH ×2 (10:58→17:24)
--- NOTE | 2019-02-20 11:11 | NM ---
EXAM: NM Cardiac Stress W EF WF PROVIDED CLINICAL HISTORY: Chest pain COMPARISON: None RADIOPHARMACEUTICAL: 28.1 millicuries technetium 99m labeled sestamibi IV stress 30.4 millicuries technetium 99m labeled sestamibi IV rest FINDINGS: There is normal, homogeneous distribution of radiotracer throughout the left ventricular myocardium. Gated data demonstrate normal myocardial wall motion and thickening with calculated LVEF 72%. Calculated TID is 1.28. IMPRESSION: 1. No scintigraphic evidence for ischemia. 2. Calculated LVEF 72%.
[2019-02-20] MEDS: Aspirin 81 mg Enteric Coated Tablet PO SCH (12:17)
[2019-02-20] MEDS: Famotidine 20 MG TAB PO SCH (12:17)
[2019-02-20] MEDS: Atorvastatin Calcium 10 MG TAB PO SCH (12:17)
[2019-02-20] MEDS: Cyanocobalamin (Vitamin B-12) 1,000 MCG TAB PO SCH (12:18)
[2019-02-20] MEDS: Amlodipine 5 MG TAB PO SCH (12:18)
--- NOTE | 2019-02-20 16:39 | PDOC.HOSPP ---
- Subjective Encounter Date: 02/20/19 Encounter Time: 14:30 Subjective: Patient seen and examined for CP. Had several episodes of intermittent CP with palpitations earlier. No SOB or syncope. No new complaints. No overnight events - Objective Vital Signs & Weight: Vital Signs (12 hours) Temp Pulse Resp BP BP Pulse Ox 02/20/19 16:07 98.1 F 68 16 136/65 97 02/20/19 12:18 67 02/20/19 12:07 97.4 F L 67 16 145/84 H 100 02/20/19 07:35 97.8 F 61 16 149/70 H 100 02/20/19 06:15 56 L 16 98 02/20/19 04:57 98.2 F 79 16 161/76 H 98 Weight Weight 171 lb 1.6 oz I&O: 02/19/19 02/20/19 02/21/19 06:59 06:59 06:59 Intake Total 225 2781 Output Total 400 2100 Balance -175 681 Result Diagrams: 02/20/19 05:54 02/20/19 05:54 Additional Labs: Accuchecks 02/20/19 02/20/19 02/19/19 10:29 04:57 21:41 POC Glucose 103 77 102 02/19/19 16:56 POC Glucose 104 EKG Reviewed by me: Yes (Tele SR) Hospitalist ROS - Review of Systems Respiratory: denies: cough, dry, shortness of breath, hemoptysis, SOB with excertion, pleuritic pain, sputum, wheezing, other Cardiovascular: denies: chest pain, palpitations, orthopnea, paroxysmal noc. dyspnea, edema, light headedness, other Gastrointestinal: denies: nausea, vomitting, abdominal pain, diarrhea, constipation, melena, hematochezia, other - Medication Medications: Active Medications Generic Name Dose Route Start Last Admin Trade Name Freq PRN Reason Stop Dose Admin Hydrocodone Bitart/Acetaminophen 1 tab 02/18/19 23:16 02/20/19 12:54 [place] 10/325 PO 1 tab Q4H PRN Administration Moderate Pain (4-6) Alprazolam 0.5 mg 02/19/19 08:25 02/20/19 08:13 Xanax PO 0.5 mg BIDPRN PRN Administration Anxiety/Insomnia Amlodipine Besylate 5 mg 02/20/19 09:00 02/20/19 12:18 Norvasc PO 5 mg DAILY KERLINE Administration Aspirin 81 mg 02/19/19 09:00 02/20/19 12:17 Ecotrin PO 81 mg DAILY KRELINE Administration Cyanocobalamin 1,000 mcg 02/19/19 09:00 02/20/19 12:18 Vitamin B-12 PO 1,000 mcg DAILY KERLINE Administration Mirabegron 25 mg 02/19/19 09:00 02/20/19 12:17 Myrbetriq Er PO 25 mg DAILY KERLINE Administration Mometasone Furoate/Formoterol Fumar 2 puff 02/19/19 18:30 02/20/19 06:15 Dulera 200 Mcg/5 Mcg Inhaler INH 2 puff BID-RT KERLINE Administration Ondansetron HCl 4 mg 02/19/19 02:05 02/19/19 11:05 Zofran Odt PO 4 mg Q6H PRN Administration Nausea/Vomiting Sodium Chloride 10 ml 02/19/19 09:00 02/20/19 08:13 Flush - Normal Saline IVF Not Given Q12HR KERLINE Zolpidem Tartrate 10 mg 02/19/19 21:00 02/19/19 22:15 Ambien PO 10 mg HS KERLINE Administration - Exam General Appearance: NAD Neck: no JVD Heart: RRR, no murmur, no gallops, no rubs Respiratory: CTAB, no wheezes, no rales, no ronchi Gastrointestinal: soft, non-tender, non-distended, normal bowel sounds Extremities: no edema Neurological: no new deficit Hosp A/P (1) Chest pain Code(s): R07.9 - CHEST PAIN, UNSPECIFIED Status: Acute (2) Generalized weakness Status: Chronic (3) Left arm pain Code(s): M79.602 - PAIN IN LEFT ARM Status: Acute (4) Anemia, normocytic normochromic Code(s): D64.9 - ANEMIA, UNSPECIFIED Status: Chronic (5) Anxiety and depression Code(s): F41.9 - ANXIETY DISORDER, UNSPECIFIED; F32.9 - MAJOR DEPRESSIVE DISORDER, SINGLE EPISODE, UNSPECIFIED Status: Chronic (6) CKD (chronic kidney disease) stage 3, GFR 30-59 ml/min Code(s): N18.3 - CHRONIC KIDNEY DISEASE, STAGE 3 (MODERATE) Status: Chronic (7) DJD (degenerative joint disease) of cervical spine Code(s): M47.812 - SPONDYLOSIS W/O MYELOPATHY OR RADICULOPATHY, CERVICAL REGION Status: Chronic (8) Hypertension Code(s): I10 - ESSENTIAL (PRIMARY) HYPERTENSION Status: Chronic - Plan DVT proph w/SCDs Stress test - no reversible ischemia Consult Cardiology consult per patient request Ortho consult for left rotator cuff tear per patient req Cont ASA Change Pepcid to PPI Cont other meds as below Patient has 2 different medical records
[2019-02-20] MEDS ORDERED: Iron Sucrose Complex 200 MG in Sodium Chloride 0.9% 250 ML 250 ML IVPB SCH (17:00)
--- NOTE | 2019-02-20 17:25 | CON ---
DATE OF CONSULTATION: 02/20/2019 REASON FOR CONSULTATION: Chest pressure, abnormal EKG, borderline stress test. HISTORY OF PRESENT ILLNESS: Ms. Bozena Peña is a very pleasant 59-year-old woman. The patient has been having chest pain for several weeks. Sometimes it is on the left side of her chest, sometimes it is on the right side of her chest, sometimes it goes all the way across her chest and feels like a pressure. She has a long history of diabetes. She previously was on insulin but is not on insulin now. She is not exactly sure how long she has had diabetes. She said that over 5 years. She was previously on insulin, but did lose 80 pounds and no longer is on insulin. PAST MEDICAL HISTORY: 1. History of high cholesterol. 2. Hypertension. 3. Diabetes, type 2. 4. Obesity, which is actually improved. 5. Severe low back pain as trouble lying flat very long. 6. She does have renal insufficiency. She had severe pneumonia earlier this year. She also had worsening of her kidney function. Ultimately, she said she transiently is on dialysis and then came off dialysis. 7. The patient was hypertensive in the emergency room. 8. Past history of spinal stenosis. 9. History of schizophrenia, but she seems very lucid today and very alert and oriented today. Her family members with her today, and the patient does not seem confused at all. She does have a tendency to get apprehensive. SOCIAL HISTORY: Previous smoker, said about 15 years ago, quit. ALLERGIES: TO CODEINE, LYRICA. CURRENT MEDICATIONS: Please see the nurse's note. She is on statin but only at 10 mg of atorvastatin a day. PHYSICAL EXAMINATION: GENERAL: She is a pleasant patient, in no distress. VITAL SIGNS: Blood pressure 136/65, pulse 68 and regular. LUNGS: Clear. CARDIAC: Normal S1, normal S2. ABDOMEN: Soft, nontender, she is obese. EXTREMITIES: No clubbing or cyanosis. There is mild edema. Peripheral pulses, she has good femoral pulses bilaterally. Good popliteal pulses bilaterally. Pedal pulses are difficult to feel, but she does have moderate edema. LABORATORY DATA: Her creatinine is 1.68. Estimated GFR is 31. Her iron level is low at 43. Ferritin is low at 33.7. Hemoglobin is 11.3, mild anemia. DIAGNOSTIC DATA: EKG shows a right bundle branch block with left axis deviation, bifascicular block with some T-wave inversions. Stress test did not show focal ischemia, but there was some transient ischemic dilatation somewhat borderline at 1.28. Ejection fraction 72%. ASSESSMENT: 1. Chest pressure, suspicious for angina. 2. Bifascicular block on EKG. 3. Previous renal failure now with stage 3 renal insufficiency. 4. Diabetes. 5. Hypertension. 6. Hypercholesterolemia. 7. Iron deficiency. PLAN: 1. I think it is reasonable to proceed to cardiac catheterization. I think her major risk is going to be a kidney injury. Therefore, I recommend starting on intravenous fluids and proceeding to catheterization tentatively on Thursday. 2. The patient states it is going to be very difficult for her to lay down after the procedure. We consider doing a radial procedure if feasible. We will discuss with Dr. Jones. If it is not feasible, can still go from the femoral artery. 3. We will give intravenous iron if she is iron deficient. 4. Echocardiogram to evaluate left ventricular function. Try to minimize the amount of x-ray contrast at the time of procedure. Job ID: [id number]
[2019-02-20] MEDS ORDERED: Iron, Sodium Ferric Gluconate 250 MG in Sodium Chloride 0.9% 100 ML IVPB SCH (18:00)
[2019-02-20] MEDS ORDERED: Polyethylene Glycol 3350 17 GM Packet PO PRN (20:15)
[2019-02-20] MEDS: Atorvastatin Calcium 40 MG TAB PO SCH (20:26)
[2019-02-20] MEDS: Zolpidem Tartrate 5 MG TAB PO SCH (22:02)
[2019-02-21] MEDS: HYDROcodone/Acetaminophen 10/325 mg Tablet PO PRN ×3 (02:54→17:51)
[2019-02-21 05:01] LABS: Anion Gap 13 mmol/L (10-20); BUN (Urea Nitrogen) 17 mg/dL (9.8-20.1); Calc. Creatinine Clearance 47 mL/min (70-130); Calcium 9.6 mg/dL (7.8-10.44); Carbon Dioxide 24 mmol/L (23-31); Chloride 104 mmol/L (98-107); Estimated GFR-MDRD 34; Glucose 78 mg/dL (80-115); Magnesium 1.7 mg/dL (1.6-2.6); Sodium 137 mmol/L (136-145)
[2019-02-21 05:03] LABS: Phosphorus 3.8 mg/dL (2.3-4.7)
[2019-02-21 05:34] LABS: Folate (Folic Acid) 3.5 ng/mL (7.0-31.4)
[2019-02-21] MEDS: Mometasone/Formoterol 120 PUFF INHALER INH SCH ×2 (07:15→19:01)
[2019-02-21] MEDS: Amlodipine 5 MG TAB PO SCH (10:30)
[2019-02-21] MEDS: Folic Acid 1 MG TAB PO SCH (10:30)
[2019-02-21] MEDS: Aspirin 81 mg Enteric Coated Tablet PO SCH (10:31)
[2019-02-21] MEDS: ALPRAZolam 0.5 MG TAB PO PRN ×2 (11:58→21:20)
[2019-02-21] MEDS: Sodium Chloride 0.9% 1,000 ML IV SCH (11:58)
[2019-02-21] MEDS ORDERED: Communication Order-Pharmacy FS SCH ×2 (15:30→15:45)
--- NOTE | 2019-02-21 15:56 | PRG ---
DATE OF SERVICE: 02/21/2019 SUBJECTIVE: Ms. Peña feels well today. No chest pain or pressure. She is sitting in the chair. OBJECTIVE: VITAL SIGNS: Blood pressure 166/75, pulse 70 and regular. LUNGS: Clear. CARDIAC: Normal S1, normal S2. ABDOMEN: Soft, nontender. ASSESSMENT: 1. Abnormal EKG. 2. Chest pain. 3. Renal failure, improved with intravenous fluid. Creatinine down to 1.54. Estimated GFR is 34. 4. Borderline stress test with increased t.i.d. PLAN: Proceed to cardiac catheterization tomorrow. Discussed risks, stroke, heart attack, iodine allergy, loss of blood supply to leg or kidney, stent thrombosis, stent restenosis. The patient understands and wishes to proceed. Job ID: [id number]
[2019-02-21] MEDS: Ondansetron ODT 4 MG TAB PO PRN (17:51)
--- NOTE | 2019-02-21 18:00 | PDOC.HOSPP ---
- Subjective Encounter Date: 02/21/19 Encounter Time: 10:30 Subjective: Patient seen and examined for CP with abn stress test. No new CP. No SOB. No new complaints. No overnight events - Objective Vital Signs & Weight: Vital Signs (12 hours) Temp Pulse Resp BP BP Pulse Ox 02/21/19 16:09 70 189/84 H 02/21/19 16:00 98.1 F 77 18 189/84 H 100 02/21/19 11:55 97.4 F L 70 16 166/75 H 100 02/21/19 10:30 76 02/21/19 07:40 98.1 F 76 15 142/73 H 100 02/21/19 07:15 80 16 98 Weight Weight 171 lb 8 oz I&O: 02/20/19 02/21/19 02/22/19 06:59 06:59 06:59 Intake Total 2781 2475 Output Total 2100 1400 Balance 681 1075 Result Diagrams: 02/20/19 05:54 02/21/19 04:11 Additional Labs: Accuchecks 02/21/19 02/20/19 10:55 19:36 POC Glucose 70 90 EKG Reviewed by me: Yes (Tele SR) Hospitalist ROS - Review of Systems Respiratory: denies: cough, dry, shortness of breath, hemoptysis, SOB with excertion, pleuritic pain, sputum, wheezing, other Cardiovascular: denies: chest pain, palpitations, orthopnea, paroxysmal noc. dyspnea, edema, light headedness, other - Medication Medications: Active Medications Generic Name Dose Route Start Last Admin Trade Name Freq PRN Reason Stop Dose Admin Acetaminophen 650 mg 02/18/19 20:45 02/21/19 16:08 Tylenol PO 650 mg Q4H PRN Administration Fever > 101 Hydrocodone Bitart/Acetaminophen 1 tab 02/18/19 23:16 02/21/19 17:51 [place] 10/325 PO 1 tab Q4H PRN Administration Moderate Pain (4-6) Alprazolam 0.5 mg 02/19/19 08:25 02/21/19 11:58 Xanax PO 0.5 mg BIDPRN PRN Administration Anxiety/Insomnia Amlodipine Besylate 5 mg 02/20/19 09:00 02/21/19 10:30 Norvasc PO 5 mg DAILY KERLINE Administration Aspirin 81 mg 02/19/19 09:00 02/21/19 10:31 Ecotrin PO 81 mg DAILY KERLINE Administration Atorvastatin Calcium 40 mg 02/20/19 21:00 02/20/19 20:26 Lipitor PO 40 mg HS KERLINE Administration Folic Acid 1 mg 02/21/19 09:00 02/21/19 10:30 Folvite PO 1 mg DAILY KERLINE Administration Hydralazine HCl 10 mg 02/19/19 07:53 02/21/19 16:09 Apresoline SLOW IVP 10 mg Q4H PRN Administration SBP > 180 and HR < 70 Sodium Chloride 1,000 mls @ 75 mls/hr 02/20/19 16:45 02/21/19 11:58 Normal Saline 0.9% IV 1,000 mls .[id number] KERLINE Administration Mirabegron 25 mg 02/19/19 09:00 02/21/19 10:30 Myrbetriq Er PO 25 mg DAILY KERLINE Administration Mometasone Furoate/Formoterol Fumar 2 puff 02/19/19 18:30 02/21/19 07:15 Dulera 200 Mcg/5 Mcg Inhaler INH 2 puff BID-RT KERLINE Administration Ondansetron HCl 4 mg 02/19/19 02:05 02/21/19 17:51 Zofran Odt PO 4 mg Q6H PRN Administration Nausea/Vomiting Pantoprazole Sodium 40 mg 02/20/19 21:00 02/21/19 10:30 Protonix PO 40 mg BID KERLINE Administration Sodium Chloride 10 ml 02/19/19 09:00 02/21/19 08:55 Flush - Normal Saline IVF Not Given Q12HR KERLINE Zolpidem Tartrate 10 mg 02/19/19 21:00 02/20/19 22:02 Ambien PO 10 mg HS KERLINE Administration - Exam General Appearance: NAD Neck: supple, no JVD Heart: RRR, no gallops Respiratory: CTAB, no wheezes, no rales, no ronchi Gastrointestinal: soft, non-tender, non-distended, normal bowel sounds Extremities: no edema Hosp A/P (1) Chest pain Code(s): R07.9 - CHEST PAIN, UNSPECIFIED Status: Acute (2) Abnormal stress test Status: Acute (3) Generalized weakness Status: Chronic (4) Left arm pain Code(s): M79.602 - PAIN IN LEFT ARM Status: Acute (5) Anemia, normocytic normochromic Code(s): D64.9 - ANEMIA, UNSPECIFIED Status: Chronic (6) Anxiety and depression Code(s): F41.9 - ANXIETY DISORDER, UNSPECIFIED; F32.9 - MAJOR DEPRESSIVE DISORDER, SINGLE EPISODE, UNSPECIFIED Status: Chronic (7) CKD (chronic kidney disease) stage 3, GFR 30-59 ml/min Code(s): N18.3 - CHRONIC KIDNEY DISEASE, STAGE 3 (MODERATE) Status: Chronic (8) DJD (degenerative joint disease) of cervical spine Code(s): M47.812 - SPONDYLOSIS W/O MYELOPATHY OR RADICULOPATHY, CERVICAL REGION Status: Chronic (9) Abnormal EKG Code(s): R94.31 - ABNORMAL ELECTROCARDIOGRAM [ECG] [EKG] Status: Acute (10) Hypertension Code(s): I10 - ESSENTIAL (PRIMARY) HYPERTENSION Status: Chronic - Plan DVT proph w/SCDs CP is probably c/w unstable angina. Cont ASA Cont PPI Cont other meds as below AM labs Consult Nephrology due to CKD and h/o dialysis in 06/01 Patient has 2 different medical records
[2019-02-21] MEDS ORDERED: Labetalol HCl 100 MG/20 ML VIAL SLOW IVP PRN (18:04)
[2019-02-21] MEDS ORDERED: cloNIDine 0.1 MG TAB PO PRN (18:04)
--- NOTE | 2019-02-21 20:59 | CON ---
DATE OF CONSULTATION: 02/21/2019 REQUESTING PHYSICIAN: Tex Sanders MD CONSULTING PHYSICIAN: Nash Parker MD REASON FOR CONSULTATION: Left shoulder pain with MRI findings of supraspinatus tear. BRIEF CLINICAL HISTORY: Bozena is a 59-year-old female, who was admitted to [facility] on 02/19/2019 for substernal chest pain. Dr. Kelley from Cardiology was consulted and suspected the patient had cardiogenic chest pain. Therefore, she has been scheduled for a cardiac catheterization tomorrow morning. Our service was consulted for findings of a left shoulder rotator cuff tear noted on MRI. The patient has had left shoulder pain now for many months and apparently , she had a dislocation of the left shoulder 2 years ago. It was treated conservatively and closed. In the last 6 months, she has had progressive nontraumatic insidious discomfort, which has progressed from shoulder area and upper brachium down into the antebrachium and paraspinous region of the left upper torso. She denies any numbness or tingling, but is unable to raise her shoulder and fully actuate the arm. She is right-handed. MRI of the left shoulder and a cervical spine have been obtained. The MRI demonstrated rotator cuff tear of the supraspinatus tendon and muscular atrophy in the tendon itself. She has had prior cervical surgeries several years ago. Her cervical MRI demonstrated C4-5 degenerative disk disease with severe foraminal stenosis secondary to canal narrowing and facet hypertrophy. Apparently, she has had a noninstrumented fusion of C5-6. PHYSICAL EXAMINATION: EXTREMITIES: Exam of left upper extremity; she is unable to forward flex and abduct the shoulder actively and passively. This is a provocative for discomfort in the shoulder itself and she also has limited range of motion and poor tolerance as well as a mechanical limited motions passively both with forward flexion and abduction. Internal-external rotation also provocative and concordant for pain with limited motion consistent with capsular tightening. She is neurovascularly intact. Reflexes are not checked, but she has good flexion and extension strength, but weakness with forward flexion of the shoulder, but the elbow strength is adequate. She has good full digital excursion and good wrist extension. I do not see fasciculations or atrophy other than age-appropriate changes in this woman. IMAGING STUDIES: MRI, please see interpretation, but she does have a small articular side retracted tear of the supraspinatus tendon on the left. Mild AC arthropathy is present, but no gross impingement identified. IMPRESSION: I believe the patient clinically has a couple of issues: 1. Cardiogenic chest pain, which will be evaluated tomorrow with cardiac catheterization and she also has significant risk factors to include renal disease and atherosclerotic disease and diabetes. 2. Left shoulder rotator cuff tear, but not severe and retracted. 3. 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 A left-sided cervical radiculitis might be contributing. PLAN: Cardiac catheterization will be the primary workup at this point. We will defer further evaluation and workup other than plain radiographs of the shoulder in lieu of this. No surgical recommendations are appropriate at this point. We will continue to follow along. Recommend opioid pain control for now. Future treatment would include diagnostic intraarticular and or selective cervical root injections to direct appropriate prioritization of issues. Job ID: [id number] MTDD
[2019-02-21] MEDS: Carvedilol 3.125 MG TAB PO SCH (21:20)
[2019-02-21] MEDS: Atorvastatin Calcium 40 MG TAB PO SCH (21:20)
[2019-02-21] MEDS: Zolpidem Tartrate 5 MG TAB PO SCH (21:23)
[2019-02-22] MEDS: HYDROcodone/Acetaminophen 10/325 mg Tablet PO PRN ×3 (03:37→19:33)
[2019-02-22] MEDS: Sodium Chloride 0.9% 1,000 ML IV SCH ×3 (03:39→22:30)
[2019-02-22 05:06] LABS: Anion Gap 13 mmol/L (10-20); BUN (Urea Nitrogen) 14 mg/dL (9.8-20.1); Calc. Creatinine Clearance 51 mL/min (70-130); Calcium 9.3 mg/dL (7.8-10.44); Carbon Dioxide 22 mmol/L (23-31); Chloride 106 mmol/L (98-107); Estimated GFR-MDRD 38; Glucose 77 mg/dL (80-115); Potassium 3.9 mmol/L (3.5-5.1); Sodium 137 mmol/L (136-145)
[2019-02-22] MEDS: Carvedilol 3.125 MG TAB PO SCH ×2 (05:43→22:22)
[2019-02-22] MEDS: Aspirin 81 mg Enteric Coated Tablet PO SCH (05:43)
[2019-02-22] MEDS: Folic Acid 1 MG TAB PO SCH (05:44)
[2019-02-22] MEDS: Amlodipine 5 MG TAB PO SCH (05:44)
[2019-02-22] MEDS ORDERED: Lidocaine 1% (PF) 30 ML VIAL ONE (06:34)
[2019-02-22] MEDS: Mometasone/Formoterol 120 PUFF INHALER INH SCH ×2 (06:54→18:45)
--- NOTE | 2019-02-22 08:24 | CON ---
DATE OF CONSULTATION: 02/21/2019 CONSULTING PHYSICIAN: Dr. Sanders. REASON FOR CONSULTATION: Chronic kidney disease, stage 3, need for contrast exposure. HISTORY OF PRESENT ILLNESS: This is a 59-year-old female with history of chronic kidney disease, who was on hemodialysis a few months back, chronic back pain, spinal stenosis, type 2 diabetes, hyperlipidemia, and hypertension, came to the hospital with shoulder and chest pain, and being evaluated. The patient is in need for cardiac cath and contrast exposure. Given her kidney disease history, Nephrology is consulted to monitor perioperatively. The patient denies any nausea or vomiting. No palpitation. No fever or chills. No abdominal pain. No back pain. PAST MEDICAL HISTORY: Positive for CKD, back pain, breast cancer, spinal stenosis, type 2 diabetes, hyperlipidemia, hypertension, COPD, sleep apnea, schizophrenia, and anxiety. PAST SURGICAL HISTORY: Leg surgery, , hysterectomy, mastectomy, and dialysis access placement. HOME MEDICATIONS: Reviewed. ALLERGIES: CODEINE, CYMBALTA, GABAPENTIN, LYRICA, AND TRAMADOL. SOCIAL HISTORY: Former smoker. No alcohol or illicit drug abuse. FAMILY HISTORY: No history of kidney disease. REVIEW OF SYSTEMS: CONSTITUTIONAL: Negative for weight loss or gain, ability to conduct usual activities. SKIN: Negative for rash, itching. EYES: Negative for double vision, pain. ENT/MOUTH: Negative for nose bleeding, neck stiffness, pain, tenderness. CARDIOVASCULAR: Negative for palpitations, dyspnea on exertion, orthopnea. RESPIRATORY: Negative for shortness of breath, wheezing, cough, hemoptysis, fever or night sweats. GASTROINTESTINAL: Negative for poor appetite, abdominal pain, heartburn, nausea, vomiting, constipation, or diarrhea. GENITOURINARY: Negative for urgency, frequency, dysuria, nocturia. MUSCULOSKELETAL: Negative for pain, swelling. NEUROLOGIC/PSYCHIATRIC: Negative for anxiety, depression. ALLERGY/IMMUNOLOGIC: Negative for skin rash, bleeding tendency. PHYSICAL EXAMINATION: GENERAL: This is a well-built female, in no apparent distress. VITAL SIGNS: Temperature 97.4, pulse 70, respiratory rate 18, and blood pressure 166/75. HEENT: Atraumatic and normocephalic. Oral mucosa moist. NECK: Supple. CV: S1 and S2 heard. Rate and rhythm regular. RESPIRATORY: Clear. GI: Abdomen is soft. MUSCULOSKELETAL: No tenderness. No edema. DERMATOLOGIC: No skin rash. NEUROLOGIC: Alert and awake. PSYCHIATRIC: Normal mood and affect. LABORATORY DATA: Hemoglobin 11.3, potassium 4.0, BUN is 17, creatinine is 1.5. GFR is 34. ASSESSMENT AND PLAN: 1. Chronic kidney disease, stage 3. Given the and recent history of dialysis, the patient was taken off dialysis few months back. The patient carries a moderate risk for renal injury from contrast exposure. Continue IV fluids to minimize the risk. The patient understands the risks. 2. Edema, controlled. 3. Hypertension, stable. 4. Anemia. We will continue to monitor. Recommend IV fluids perioperatively and limit the contrast. We will follow. Monitor cardiorespiratory status. Thank you for the consult. Job ID: [id number]
--- NOTE | 2019-02-22 09:05 | PRG ---
DATE OF SERVICE: 02/22/2019 SUBJECTIVE: A 59-year-old female being seen for acute kidney injury. The patient denied nausea, vomiting, or chest pain. OBJECTIVE: CONSTITUTIONAL: The patient is awake and alert. VITAL SIGNS: Afebrile, pulse 79, breathing 16, blood pressure 130/66. GENERAL APPEARANCE AND MENTAL STATUS: Fair. HEAD/NECK: Normocephalic. Atraumatic. EYES: EOMI. No deformity. EARS: Clear. No ulcers. NOSE: Intact. No lesions. MOUTH: Clear. No discharge. THROAT: Clear. No exudate. LUNGS: Clear. No crackles. CARDIAC: S1, S2. No rub. ABDOMEN: Benign. Bowel sounds positive. GENITALIA/RECTUM: Hidalgo absent. BACK/EXTREMITIES: Edema 0+. NEUROLOGICAL: Alert and motor intact. SKIN: LYMPHATICS: LABORATORY DATA: Labs show hemoglobin 11.3. Creatinine was 1.4. ASSESSMENT AND PLAN: Acute kidney injury, improved. Hypertension, stable. Anemia, stable. Medication based on GFR appropriate. I will sign off on this patient. Please reconsult as needed. Job ID: [id number]
[2019-02-22] MEDS ORDERED: Iopamidol 370 76% 100 ML VIAL ONE (10:06)
[2019-02-22] MEDS ORDERED: Fentanyl 100 MCG/2 ML VIAL ONE ×2 (10:46→11:06)
[2019-02-22] MEDS ORDERED: Metoprolol Tartrate 5 MG/5 ML VIAL ONE (11:06)
[2019-02-22] MEDS ORDERED: Nitroglycerin 0.4 MG TAB (25 Tab Bottle) SL PRN (11:10)
[2019-02-22] MEDS ORDERED: Sodium Chloride 0.9% 200 ML IV PRN (11:10)
--- NOTE | 2019-02-22 21:29 | PDOC.HOSPP ---
- Subjective Encounter Date: 02/22/19 Encounter Time: 13:30 Subjective: Patient seen and examined for CP with abnormal stress test. No CP or SOB. No new complaints. No overnight events - Objective Vital Signs & Weight: Vital Signs (12 hours) Temp Pulse Resp BP BP BP BP 02/22/19 19:31 97.9 F 80 16 134/64 02/22/19 18:45 75 12 02/22/19 15:04 98.2 F 77 17 156/68 H 02/22/19 14:54 186/74 H 02/22/19 13:38 98.3 F 78 16 129/63 02/22/19 11:45 98.3 F 80 18 158/95 H Pulse Ox 02/22/19 19:31 98 02/22/19 18:45 02/22/19 15:04 100 02/22/19 14:54 02/22/19 13:38 100 02/22/19 11:45 99 Weight Weight 171 lb 8 oz I&O: 02/21/19 02/22/19 02/23/19 06:59 06:59 06:59 Intake Total 2475 Output Total 1400 Balance 1075 Result Diagrams: 02/20/19 05:54 02/22/19 04:39 Additional Labs: Accuchecks 02/22/19 02/22/19 02/22/19 20:28 17:11 14:36 POC Glucose 116 H 113 H 69 L 02/22/19 02/21/19 06:22 21:24 POC Glucose 66 L 91 EKG Reviewed by me: Yes (Tele SR) Hospitalist ROS - Review of Systems Respiratory: denies: cough, dry, shortness of breath, hemoptysis, SOB with excertion, pleuritic pain, sputum, wheezing, other Cardiovascular: denies: chest pain, palpitations, orthopnea, paroxysmal noc. dyspnea, edema, light headedness, other - Medication Medications: Active Medications Generic Name Dose Route Start Last Admin Trade Name Freq PRN Reason Stop Dose Admin Acetaminophen 650 mg 02/18/19 20:45 02/21/19 16:08 Tylenol PO 650 mg Q4H PRN Administration Fever > 101 Hydrocodone Bitart/Acetaminophen 1 tab 02/18/19 23:16 02/22/19 19:33 [place] 10/325 PO 1 tab Q4H PRN Administration Moderate Pain (4-6) Alprazolam 0.5 mg 02/19/19 08:25 02/21/19 21:20 Xanax PO 0.5 mg BIDPRN PRN Administration Anxiety/Insomnia Amlodipine Besylate 5 mg 02/20/19 09:00 02/22/19 05:44 Norvasc PO 5 mg DAILY KERLINE Administration Aspirin 81 mg 02/19/19 09:00 02/22/19 05:43 Ecotrin PO 81 mg DAILY KERLINE Administration Atorvastatin Calcium 40 mg 02/20/19 21:00 02/21/19 21:20 Lipitor PO 40 mg HS KERLINE Administration Carvedilol 3.125 mg 02/21/19 21:00 02/22/19 05:43 Coreg PO 3.125 mg BID KERLINE Administration Clonidine 0.1 mg 02/21/19 18:04 02/22/19 14:54 Catapres PO 0.1 mg Q4H PRN Administration SBP Greater Than 180 Dextrose/Water 25 gm 02/19/19 01:31 02/22/19 06:24 Dextrose 50% SLOW IVP 25 gm PRN PRN Administration Hypoglycemia Folic Acid 1 mg 02/21/19 09:00 02/22/19 05:44 Folvite PO 1 mg DAILY KERLINE Administration Mirabegron 25 mg 02/19/19 09:00 02/22/19 05:43 Myrbetriq Er PO 25 mg DAILY KERLINE Administration Mometasone Furoate/Formoterol Fumar 2 puff 02/19/19 18:30 02/22/19 18:45 Dulera 200 Mcg/5 Mcg Inhaler INH 2 puff BID-RT KERLINE Administration Ondansetron HCl 4 mg 02/19/19 02:05 02/21/19 17:51 Zofran Odt PO 4 mg Q6H PRN Administration Nausea/Vomiting Pantoprazole Sodium 40 mg 02/20/19 21:00 02/22/19 05:44 Protonix PO 40 mg BID KERLINE Administration Sodium Chloride 10 ml 02/19/19 09:00 02/22/19 05:44 Flush - Normal Saline IVF Not Given Q12HR KERLINE Zolpidem Tartrate 10 mg 02/19/19 21:00 02/21/19 21:23 Ambien PO 10 mg HS KERLINE Administration - Exam General Appearance: NAD Neck: no JVD Heart: RRR, no gallops Respiratory: CTAB, no rales, no ronchi Gastrointestinal: soft, non-tender, non-distended, normal bowel sounds Extremities: no cyanosis, no edema Neurological: no new deficit Hosp A/P (1) Chest pain Code(s): R07.9 - CHEST PAIN, UNSPECIFIED Status: Acute (2) Abnormal stress test Status: Acute (3) Generalized weakness Status: Chronic (4) Left arm pain Code(s): M79.602 - PAIN IN LEFT ARM Status: Acute (5) Anemia, normocytic normochromic Code(s): D64.9 - ANEMIA, UNSPECIFIED Status: Chronic (6) Anxiety and depression Code(s): F41.9 - ANXIETY DISORDER, UNSPECIFIED; F32.9 - MAJOR DEPRESSIVE DISORDER, SINGLE EPISODE, UNSPECIFIED Status: Chronic (7) CKD (chronic kidney disease) stage 3, GFR 30-59 ml/min Code(s): N18.3 - CHRONIC KIDNEY DISEASE, STAGE 3 (MODERATE) Status: Chronic (8) DJD (degenerative joint disease) of cervical spine Code(s): M47.812 - SPONDYLOSIS W/O MYELOPATHY OR RADICULOPATHY, CERVICAL REGION Status: Chronic (9) Abnormal EKG Code(s): R94.31 - ABNORMAL ELECTROCARDIOGRAM [ECG] [EKG] Status: Acute (10) Hypertension Code(s): I10 - ESSENTIAL (PRIMARY) HYPERTENSION Status: Chronic (11) Chronic diastolic heart failure Code(s): I50.32 - CHRONIC DIASTOLIC (CONGESTIVE) HEART FAILURE Status: Chronic (12) Hypertensive heart disease Code(s): I11.9 - HYPERTENSIVE HEART DISEASE WITHOUT HEART FAILURE Status: Chronic - Plan DVT proph w/SCDs Echo reviewed Cath - normal coronaries Cont IVF per Nephrology - I d/w Dr Nevarez Cont PPI Cont other meds as below BMP in AM Patient has 2 different medical records
[2019-02-22] MEDS: Zolpidem Tartrate 5 MG TAB PO SCH (22:22)
[2019-02-22] MEDS: Atorvastatin Calcium 40 MG TAB PO SCH (22:22)
[2019-02-22] MEDS: ALPRAZolam 0.5 MG TAB PO PRN (22:22)
[2019-02-23 05:40] LABS: Anion Gap 12 mmol/L (10-20); BUN (Urea Nitrogen) 13 mg/dL (9.8-20.1); Calc. Creatinine Clearance 48 mL/min (70-130); Calcium 9.5 mg/dL (7.8-10.44); Carbon Dioxide 22 mmol/L (23-31); Chloride 106 mmol/L (98-107); Estimated GFR-MDRD 35; Glucose 78 mg/dL (80-115); Potassium 3.7 mmol/L (3.5-5.1); Sodium 136 mmol/L (136-145)
[2019-02-23] MEDS: HYDROcodone/Acetaminophen 10/325 mg Tablet PO PRN ×3 (06:19→15:43)
--- NOTE | 2019-02-23 08:13 | PRG ---
DATE OF SERVICE: 02/23/2019 SUBJECTIVE: Ms. Peña is doing better today. No complaints. Her cardiac catheterization yesterday was normal. OBJECTIVE: VITAL SIGNS: Blood pressure 142/63, pulse 77 and regular. LUNGS: Clear. CARDIAC: Normal S1. Normal S2. ASSESSMENT: 1. Chest pain. 2. Normal coronary arteries. 3. Renal failure, stable, stage 3. Creatinine is 1.5. Only 33 mm contrast used yesterday. PLAN: 1. Discontinue IV fluid. 2. We will sign off. No further recommendations. Okay to me to be released home. We will discontinue telemetry. Job ID: [id number]
[2019-02-23] MEDS: Mometasone/Formoterol 120 PUFF INHALER INH SCH (08:20)
[2019-02-23] MEDS: Amlodipine 5 MG TAB PO SCH (08:42)
[2019-02-23] MEDS: Aspirin 81 mg Enteric Coated Tablet PO SCH (08:42)
[2019-02-23] MEDS: Folic Acid 1 MG TAB PO SCH (08:42)
[2019-02-23] MEDS: Carvedilol 3.125 MG TAB PO SCH (08:42)
[2019-02-23 15:37] VITALS: BP 146/67; TEMP 97.9
--- NOTE | 2019-02-24 08:01 | DIS ---
DATE OF ADMISSION: 02/21/2019 DATE OF DISCHARGE: 02/23/2019 DISCHARGE DISPOSITION: Home. FOLLOWUP: 1. Follow up with primary care physician, Dr. Douglas Gonzalez in 1 week. 2. Follow up with Orthopedic, Dr. Britt in 1 to 2 weeks. 3. Follow up with Nephrology, Dr. Nevarez in 1 to 2 weeks. ALLERGIES: THE PATIENT IS ALLERGIC TO CODEINE, CYMBALTA, GABAPENTIN AND LYRICA. DISCHARGE MEDICATIONS: Protonix 40 mg daily. All other home medications were left unchanged. Patient was seen and examined on the day of discharge. Denies any new complaints. No chest pain, shortness of breath or palpitations. BRIEF HOSPITAL COURSE: The patient is a 59-year-old female with diabetes mellitus type 2, COPD, hyperlipidemia and morbid obesity in the past, presented to the emergency room with chest discomfort along with bilateral shoulder pain. Please refer to the history and physical for further details. For chest discomfort, the patient underwent a stress test that showed elevated TID up to 1.28 without any evidence of ischemia. Echocardiogram showed left ventricular ejection fraction of 60% to 65% with moderate concentric left ventricular hypertrophy with grade 1 diastolic dysfunction. Due to abnormal stress test, the patient underwent cardiac catheterization that showed normal coronary arteries. She has been cleared by Cardiology for discharge. Due to significant shoulder and neck pain, patient underwent cervical spine MRI as well as left shoulder MRI on admission. The MRI of the cervical spine showed multilevel spondylosis, greatest at C4-5 with disk osteophyte complex as well as segmental hypertrophy, completely effacing the dorsal and the ventral cerebral spinal fluid space 6-7 mm. It also showed multilevel neural foraminal narrowing, greatest at C4-5 due to high-grade facet arthropathy. There was abnormal edema within the C6-7 disk space, likely due to abnormal motion from C5-6 osseus fusion. She will benefit from an outpatient neurosurgical workup. The left shoulder MRI showed full thickness, full with supraspinatus and infraspinatus tendon tear from the footprint with some scar and granulation in situ. She was evaluated by Orthopedic, Dr. Parker. She will follow up with Orthopedic as outpatient. PLAN: Plan of care was discussed with the patient in detail. She stated understanding. FINAL DIAGNOSES: 1. Chest discomfort with abnormal stress test. Please note that cardiac catheterization showed normal coronaries. 2. Left shoulder pain secondary to full thickness tear of the supraspinatus and the infraspinatus tendon. 3. Neck pain secondary to multilevel spondylosis. 4. Generalized weakness, multifactorial. 5. Chronic anemia. 6. Anxiety. 7. Depression; mild, stable. 8. Chronic kidney disease stage 3 with mild acute kidney injury. Maximum creatinine on admission was 1.66. Lowest creatinine this admission was 1.41. 9. Chronic diastolic heart failure. 10. Hypertensive heart disease. 11. Abnormal EKG. Please note that patient has 2 different medical records in the hospital system. Job ID: [id number]
--- NOTE | 2019-02-26 13:21 | EKG ---
Test Reason : Blood Pressure : / mmHG Vent. Rate : 058 BPM Atrial Rate : 058 BPM P-R Int : 146 ms QRS Dur : 124 ms QT Int : 446 ms P-R-T Axes : -15 -28 -27 degrees QTc Int : 437 ms Sinus bradycardia Right bundle branch block Abnormal ECG Confirmed by ALCIDES LEO, AUSTYN Armenta ([id number]), order editor BENEDICT MACEDO ([id number]) on 02/26/2019 1:20:52 PM Referred By: Confirmed By:AUSTYN MCGRATH MD
== END 2019-02-23 17:05 | disposition home or self-care (01) | DRG 287 ==
LOC: ERS 17:26 → 2SW 21:48 → OBSVTOIN 02-21 14:29 → 2NO 02-21 20:57
PROVIDERS: ADMIT Hospitalist; ATTEND Hospitalist
PROC: B2111ZZ Fluoroscopy of Multiple Coronary Arteries using Low Osmolar Contrast (ICD-10-PCS; principal; 2019-02-21)
PROC: 4A023N7 Measurement of Cardiac Sampling and Pressure, Left Heart, Percutaneous Approach (ICD-10-PCS; 2019-02-21)
DX: R07.89 Other chest pain (principal); N17.9 Acute kidney failure, unspecified; J44.9 Chronic obstructive pulmonary disease, unspecified; E78.5 Hyperlipidemia, unspecified; M54.9 Dorsalgia, unspecified; G89.29 Other chronic pain; G47.00 Insomnia, unspecified; F41.9 Anxiety disorder, unspecified; F32.9 Major depressive disorder, single episode, unspecified; N18.3 Chronic kidney disease, stage 3 (moderate); F20.9 Schizophrenia, unspecified; E11.22 Type 2 diabetes mellitus with diabetic chronic kidney disease; M47.812 Spondylosis without myelopathy or radiculopathy, cervical region; E66.01 Morbid (severe) obesity due to excess calories; S46.812A Strain of other muscles, fascia and tendons at shoulder and upper arm level, left arm, initial encounter; X58.XXXA Exposure to other specified factors, initial encounter; D63.1 Anemia in chronic kidney disease; I13.10 Hypertensive heart and chronic kidney disease without heart failure, with stage 1 through stage 4 chronic kidney disease, or unspecified chronic kidney disease; Z90.710 Acquired absence of both cervix and uterus; Z90.13 Acquired absence of bilateral breasts and nipples; Z87.891 Personal history of nicotine dependence; Z88.5 Allergy status to narcotic agent; Z88.8 Allergy status to other drugs, medicaments and biological substances
CPT/HCPCS: 36415; 36416; 71046; 72141; 76942; 78452; 80048; 80053; 80061; 81003; 82533; 82550; 82607; 82746; 83735; 83880; 84100; 84443; 84484; 85025; 93005; 93017; 93306; 93458; 99152; A9500; C1769; J0153; J0360; J1644; J1756; J2001; J2916; J3010; J3490; J7050; Q0162; Q9967; S0028

== ENCOUNTER 2019-03-31 09:48 | Outpatient (CLI) | payer MEDICARE, MEDICAID ==
--- NOTE | 2019-03-31 12:08 | CT ---
CT ABDOMEN AND PELVIS WITHOUT IV CONTRAST: INDICATION: Microhematuria. End stage renal disease. COMPARISON: Comparison is made to CT abdomen and pelvis without contrast dated 06/24/2013. FINDINGS: Lung bases appear clear. Mild cardiomegaly. Liver, spleen, and pancreas unremarkable. There is a gastric band in place. Stomach and duodenum ot herwise unremarkable. Adrenal glands normal. Kidneys show no evidence of hydronephrosis or urinary tract calculus. The ureters are normal caliber . The kidneys show no evidence of hydronephrosis or urinary tract calculus. The ureters are normal caliber. No evidence of mass or cyst seen in either kidney on this unenhanced study. The urinary bladder is mildly distended and unremarkable. Small bowel loops are normal caliber. Prominent stool in the colon. Aorta normal caliber. No mass or adenopathy. No free fluid. IMPRESSION: No evidence of acute process. POS: OFF
== END 2019-03-31 09:49 | disposition home or self-care (01) ==
LOC: BICCT 09:48
PROVIDERS: ATTEND Urology
DX: N18.6 End stage renal disease (principal); R31.29 Other microscopic hematuria
CPT/HCPCS: 74176

== ENCOUNTER 2019-06-01 07:37 | Day surgery (SDC) | payer MEDICARE, MEDICAID ==
[2019-05-31 10:00] VITALS: BMI 25.0
[2019-06-01] MEDS ORDERED: Fentanyl 100 MCG/2 ML VIAL ONE (10:51)
[2019-06-01] MEDS ORDERED: PROPOFOL 200 MG/20 ML VIAL ONE (13:15)
[2019-06-01] MEDS ORDERED: PHENYLEPHRINE-NS 100 MCG/ML 10 ML SYRINGE ONE (13:15)
[2019-06-01] MEDS ORDERED: Lidocaine 1% PF 5 ML VIAL ONE (13:15)
--- NOTE | 2019-06-01 16:14 | OP ---
DATE OF PROCEDURE: 06/01/2019 PROCEDURES PERFORMED: 1. Esophagogastroduodenoscopy with biopsy. 2. Colonoscopy with biopsy. INDICATIONS FOR PROCEDURE: Midepigastric abdominal pain, chronic diarrhea, and lower abdominal pain. DESCRIPTION OF PROCEDURE: After the risks and benefits of the procedures were explained to the patient including risks of bleeding, infection, perforation, reactions to anesthesia, aspiration, and/or pain, informed consent was obtained. The patient was then taken to the endoscopy suite, where she was placed in the left lateral decubitus position followed by introduction of deep sedation via propofol and anesthesia support. Once adequate sedation was achieved, the standard gastroscope was introduced into the mouth with intubation of the esophagus, stomach, and the proximal small intestines with the findings listed below. The patient tolerated the procedure well with no immediate perioperative complications. Upon conclusion of the procedure, all equipment was removed from the patient. The bed was rotated 180 degrees in anticipation of the colonoscopy. After a digital rectal examination was performed, the standard colonoscope was introduced into the rectum and advanced to the cecum with some difficulty, requiring manual abdominal pressure to facilitate passage of the scope secondary to redundant colon, tortuous colon , and significant looping of the colonoscope. The patient tolerated the procedure well with no immediate perioperative complications. The quality of the prep was fair to good, but inadequate for identifying lesions less than 6 mm in size. There were no perioperative complications. Upon conclusion of the procedure, all equipment was removed from the patient and she was transferred to Day Stay in satisfactory condition. EGD FINDINGS: Esophagus: Normal-appearing mucosa was seen in the proximal, mid , and distal esophagus. There was no evidence of erosions, ulcerations, mass, lesions, or active/recent bleeding. Stomach: In the proximal stomach, there appeared to be mildly increased friability of the gastroesophageal junction. However, there was also a fistulous type connection adjacent to the gastroesophageal junction that was surrounded by retained surgical sutures. On retroflexion, this bifurcation was better evaluated with the GE junction extending to the left as well as this fistulous connection with surrounding sutures extending to the right. Again, describe was increased friability at this fistulous type connection, but there was no evidence of active bleeding or mass lesions. Otherwise, normal-appearing mucosa was seen in the gastric fundus, body, greater curvature, antrum, and incisura. There was no evidence of erosions, ulcerations, mass, lesions, or active/recent bleeding. Duodenum: Normal-appearing mucosa was seen in both the duodenal bulb and second portion of the duodenum. There was no evidence of erosions, ulcerations, mass, lesions, or active/recent bleeding. Random biopsies were taken from the small bowel for evaluation of possible celiac disease or etiology for her diarrhea. IMPRESSION: 1. Surgical change within the stomach, suspicious for either failure of a laparoscopic band or failure of a Nirmala-en-Y gastric bypass (although Nirmala limb was not seen during this exam). 2. Otherwise normal upper endoscopy. COLONOSCOPY FINDINGS: Digital rectal exam: Small external hemorrhoids were seen on external examination. Colon findings: A small amount of retained solid and liquid stool was seen throughout the entire colon and was amenable to aggressive irrigation and suctioning with a large amount of sterile water. However, adequate visualization could not be achieved with lesions less than 6 mm in size possibly being missed of the mucosa seen. Normal-appearing mucosa was seen in the cecum as well as at the appendiceal orifice and ileocecal valve. Normal-appearing mucosa was seen in the ascending, transverse, descending, and sigmoid colon and rectum. Random colon biopsies were taken throughout the colon in the ascending, transverse, descending, and sigmoid colons. Dilated colon was also seen throughout the entire examination, but no evidence of mucosal breakdown, small to medium-sized internal hemorrhoids were seen on rectal retroflexion. IMPRESSION: 1. Dilated colon seen throughout the entire large intestine, consistent with chronic constipation and/or decreased motility. 2. Internal and external hemorrhoids. 3. No etiology for the patient's abdominal pain was seen during this examination. RECOMMENDATIONS: 1. Would continue the higher fiber diet with FODMAP guidance to decrease intraluminal gas and facilitate passage of stool while on narcotics. 2. Would attempt to avoid narcotic administration as it can be very constipating. 3. We will follow up on the biopsy results for evaluation of chronic diarrhea. 4. We will consider addition of flavored mineral oil and/or dicyclomine at the next clinic visit. 5. Would have the patient follow up in the GI Clinic in 4 weeks for followup of her abdominal pain and diarrhea. 6. Would recommend repeat colonoscopy for screening purposes in approximately 1- 3 years given inadequate prep today. Job ID: [id number] [facility]
== END 2019-06-01 12:45 | disposition home or self-care (01) ==
LOC: SDC 07:37
PROVIDERS: ATTEND Internal Medicine
PROC: 0DB98ZX Excision of Duodenum, Via Natural or Artificial Opening Endoscopic, Diagnostic (ICD-10-PCS; principal; 2019-06-01)
PROC: 0DBK8ZX Excision of Ascending Colon, Via Natural or Artificial Opening Endoscopic, Diagnostic (ICD-10-PCS; 2019-06-01)
PROC: 0DBL8ZX Excision of Transverse Colon, Via Natural or Artificial Opening Endoscopic, Diagnostic (ICD-10-PCS; 2019-06-01)
PROC: 0DBN8ZZ Excision of Sigmoid Colon, Via Natural or Artificial Opening Endoscopic (ICD-10-PCS; 2019-06-01)
PROC: 0DBM8ZX Excision of Descending Colon, Via Natural or Artificial Opening Endoscopic, Diagnostic (ICD-10-PCS; 2019-06-01)
DX: K52.9 Noninfective gastroenteritis and colitis, unspecified (principal); R10.30 Lower abdominal pain, unspecified; R10.13 Epigastric pain; K64.4 Residual hemorrhoidal skin tags; K64.8 Other hemorrhoids; Z79.82 Long term (current) use of aspirin; Z79.899 Other long term (current) drug therapy; Z88.5 Allergy status to narcotic agent; Z88.8 Allergy status to other drugs, medicaments and biological substances; Z98.84 Bariatric surgery status
CPT/HCPCS: 88305; J2001; J2704; J3010

== ENCOUNTER 2019-12-20 10:11 | Day surgery (SDC) | payer MEDICARE, MEDICAID, OTHER ==
[2019-12-12 10:52] VITALS: BMI 23.0
[2019-12-15 14:07] LABS: Hemoglobin 10.6 g/dL (12.0-16.0); Mean Corpuscular HGB CONC 32.1 g/dL (32.0-36.0); Mean Corpuscular Hemoglobin 32.2 pg (27.0-31.0); Mean Platelet Volume 6.5 fL (7.4-10.4); Platelet Count 231 thou/uL (130-400); RBC Distribution Width 11.7 % (11.5-14.5); Red Blood Cell (RBC) Count 3.28 mill/uL (4.20-5.40); White Blood Cell (WBC) Count 4.6 thou/uL (4.8-10.8)
[2019-12-15 14:32] LABS: Anion Gap 13 mmol/L (10-20); BUN (Urea Nitrogen) 25 mg/dL (9.8-20.1); Calc. Creatinine Clearance 0 mL/min (70-130); Calcium 9.3 mg/dL (7.8-10.44); Carbon Dioxide 27 mmol/L (23-31); Chloride 98 mmol/L (98-107); Estimated GFR-MDRD 37; Glucose 106 mg/dL (80-115); Potassium 4.9 mmol/L (3.5-5.1); Sodium 133 mmol/L (136-145)
[2019-12-16 16:01] LABS: SARS-CoV-2 MS2 Positive; SARS-CoV-2 N Gene Negative; SARS-CoV-2 S Gene Negative; SARS-CoV-2 orf1ab Negative
[2019-12-20] MEDS ORDERED: Lidocaine 1% w/Epinephrine 1:100K 20 ML VIAL ONE (12:11)
[2019-12-20] MEDS ORDERED: Fentanyl 100 MCG/2 ML VIAL ONE ×4 (12:36→16:17)
[2019-12-20] MEDS ORDERED: EPHEDRINE 25 MG/5 ML SYRINGE ONE (13:04)
[2019-12-20] MEDS ORDERED: PROPOFOL 200 MG/20 ML VIAL ONE (13:04)
[2019-12-20] MEDS ORDERED: Lidocaine 1% PF 5 ML VIAL ONE (13:04)
[2019-12-20] MEDS ORDERED: diphenhydrAMINE 25 MG CAP PO PRN (14:17)
[2019-12-20] MEDS ORDERED: Morphine 4 MG/ML VIAL SLOW IVP PRN (14:17)
[2019-12-20] MEDS ORDERED: Ondansetron PF 4 MG/2 ML Vial IVP PRN (14:17)
[2019-12-20] MEDS ORDERED: Simethicone Chewable 80 MG TAB PO PRN (14:17)
[2019-12-20] MEDS ORDERED: Acetaminophen 325 MG TAB PO PRN (14:17)
[2019-12-20] MEDS ORDERED: Promethazine HCl 25 MG/ML VIAL IM PRN (14:17)
[2019-12-20] MEDS ORDERED: Morphine 4 MG/ML VIAL ONE (15:17)
[2019-12-20] MEDS ORDERED: Morphine 2 MG/ML VIAL ONE (15:43)
[2019-12-20] MEDS: ALPRAZolam 1 MG TAB PO SCH ×2 (17:23→21:47)
[2019-12-20] MEDS: HYDROcodone/Acetaminophen 10/325 mg Tablet PO PRN ×2 (17:54→21:45)
[2019-12-20] MEDS ORDERED: Zolpidem Tartrate 5 MG TAB PO SCH (21:00)
[2019-12-20] MEDS: Docusate 100 MG CAP PO SCH (21:46)
[2019-12-21] MEDS: HYDROcodone/Acetaminophen 10/325 mg Tablet PO PRN ×3 (04:40→12:36)
[2019-12-21 06:32] LABS: Hemoglobin 10.1 g/dL (12.0-16.0); Mean Corpuscular HGB CONC 33.3 g/dL (32.0-36.0); Mean Corpuscular Hemoglobin 33.2 pg (27.0-31.0); Mean Corpuscular Volume 99.7 fL (78.0-98.0); Mean Platelet Volume 6.5 fL (7.4-10.4); Platelet Count 202 thou/uL (130-400); Red Blood Cell (RBC) Count 3.03 mill/uL (4.20-5.40); White Blood Cell (WBC) Count 5.7 thou/uL (4.8-10.8)
--- NOTE | 2019-12-21 06:55 | OP ---
DATE OF PROCEDURE: 12/20/2019 PREOPERATIVE DIAGNOSIS: This is a 59-year-old white female with prior hysterectomy with grade 2 cystocele and grade 3 to 4 rectocele. POSTOPERATIVE DIAGNOSIS: This is a 59-year-old white female with prior hysterectomy with grade 2 cystocele and grade 3 to 4 rectocele. PROCEDURE PERFORMED: Anterior and posterior repair. CARDIOPULMONARY TECHNOLOGIST CHIEF SURGEON: Jackie Moncada PA-C ANESTHESIA: General endotracheal. ESTIMATED BLOOD LOSS: 50 mL. COMPLICATIONS: None. COUNTS: Correct x2. ANTIBIOTICS: 2 g Ancef, on-call to OR. FINDINGS: 1. Clear urine present in Hidalgo catheter postprocedure. 2. Endopelvic fascia of both the anterior and posterior compartment was somewhat diminutive, especially in the posterior compartment. The cystocele and rectocele were reduced. DISPOSITION: To recovery room, stable. DESCRIPTION OF PROCEDURE: The patient previously received informed consent in regard to surgery. She was taken back to the operating room, where she was placed in the dorsal lithotomy position after receiving general endotracheal anesthetic agent. She was prepped and draped in usual sterile fashion. Hidalgo catheter had been placed. Exam under anesthesia was noted and performed. A weighted speculum was placed in the vagina and the anterior cuff was grasped with 2 Allis clamps. The anterior vaginal mucosa was infiltrated with 1% lidocaine with epinephrine. I then made an incision at the anterior cuff line and incised the anterior vaginal mucosa approximately 1.5 cm from the urethral meatus. The anterior vaginal mucosa was then dissected away from the cystocele and endopelvic fascia both sharply and bluntly until the cystocele was reduced. We then used 0 Vicryl sutures in a cmwuan-yg-ijdfu stitch fashion to plicate and reinforce the endopelvic fascia closing off the cystocele defect. The excess vaginal mucosa was trimmed and then the vaginal mucosa was plicated with intermittent mzvhxx-pq-zxlmc stitches grabbing some of the endopelvic fascia to rid the space. Hemostasis was assured. Clear urine was draining from the Hidalgo catheter. The rectocele defect was then examined. It was large as noted. The posterior introitus at the 4 and 8 o'clock positions were grasped with 2 Allis clamps. The posterior vaginal mucosa was infiltrated with 1% lidocaine with epinephrine. A vertical midline incision was made in the posterior vaginal mucosa up to the cuff line. The edges of the vaginal mucosa were grasped with intervening Allis clamps by my special ed assistant to bag machine helper in dissection of the rectocele defect from the posterior vaginal mucosa. The rectocele was dissected in its entirety. It was noted to be very large. The endopelvic fascia was freed from the vaginal mucosa. The endopelvic fascia was somewhat diminutive in size and tensile strength. I was able to find some endopelvic fascia most closely up by the vaginal cuff line on the patient's left side. 0 Vicryl suture was placed through this. There was found some endopelvic fascia on the opposite side . This was then grasped and then plicated together with a bnajdq-bm-lhzow stitch. We then continued to plicate the endopelvic fascia, that was from the left side over to the right side closing off the rectocele defect working cephalad out towards the vaginal introitus. Once this had been plicated off, additional cgbcov-ga-ijksy stitches of 0 Vicryl were placed in the endopelvic fascia reinforcing the repair. Large excess vaginal mucosa was incised and then we closed the posterior vaginal mucosa with 2-0 sutures starting at the apex incorporating some of the endopelvic fascia. This was carried out to the vaginal introitus, it was also closed, and hemostasis was confirmed. A moistened Kerlix was then placed in the vaginal vault. The patient was awakened from anesthesia and transferred to recovery room in stable condition. Job ID: [id number]
[2019-12-21] MEDS: ALPRAZolam 1 MG TAB PO SCH (08:37)
[2019-12-21] MEDS: Docusate 100 MG CAP PO SCH (08:37)
[2019-12-21] MEDS ORDERED: Buprenorphine 8mg/Naloxone 2mg per 1 FILM SL SCH (09:00)
[2019-12-21] MEDS ORDERED: Amlodipine 5 MG TAB PO SCH (09:00)
[2019-12-21 11:42] VITALS: BP 149/69; TEMP 98.7
[2019-12-21] MEDS ORDERED: Mometasone Furoate 120 PUFF 220 MCG INH SCH (18:30)
== END 2019-12-21 15:27 | disposition home or self-care (01) ==
LOC: SDC 10:11 → 3SE 14:18 → SDC 12-21 15:27
PROVIDERS: ATTEND Obstetrics & Gynecology
PROC: 0JQC0ZZ Repair Pelvic Region Subcutaneous Tissue and Fascia, Open Approach (ICD-10-PCS; principal; 2019-12-20)
PROC: 0JQC0ZZ Repair Pelvic Region Subcutaneous Tissue and Fascia, Open Approach (ICD-10-PCS; 2019-12-20)
DX: N81.10 Cystocele, unspecified (principal); N81.6 Rectocele; I13.10 Hypertensive heart and chronic kidney disease without heart failure, with stage 1 through stage 4 chronic kidney disease, or unspecified chronic kidney disease; E11.22 Type 2 diabetes mellitus with diabetic chronic kidney disease; N18.3 Chronic kidney disease, stage 3 (moderate); E78.5 Hyperlipidemia, unspecified; J44.9 Chronic obstructive pulmonary disease, unspecified; G47.30 Sleep apnea, unspecified; F20.0 Paranoid schizophrenia; F41.9 Anxiety disorder, unspecified; I45.2 Bifascicular block; G47.33 Obstructive sleep apnea (adult) (pediatric); E78.00 Pure hypercholesterolemia, unspecified; D50.8 Other iron deficiency anemias; Z79.82 Long term (current) use of aspirin; Z79.899 Other long term (current) drug therapy; Z88.5 Allergy status to narcotic agent; Z88.8 Allergy status to other drugs, medicaments and biological substances; Z90.710 Acquired absence of both cervix and uterus
CPT/HCPCS: 57260; 80048; 85027 ×2; 86850; 86900; 86901; J2270; U0003; 36415; 87635; J0690; J2001; J2704; J3010

== ENCOUNTER 2020-03-09 09:45 | Outpatient (CLI) | payer MEDICARE, MEDICAID ==
--- NOTE | 2020-03-09 10:57 | RAD ---
CERVICAL SPINE 4 VIEWS: Date: 03/09/2020 HISTORY: Cervical pain. COMPARISON: MRI dated 01/31/2020. 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 There is mild abnormal increased translation to 6.0 mm with flexion and decreased translation of 2.0 mm with extension. No acute fracture. There is osseous fusion at the C5-6 disc space. There is also n ear complete bridging anterior osteophyte at C2-3, as well as C5-C7 bridging anterior osteophyte. IMPRESSION: Abnormal translation with flexion and extension at C4-5. POS: [facility]
== END 2020-03-09 09:46 | disposition home or self-care (01) ==
LOC: BICRAD 09:45
PROVIDERS: ATTEND Neurological Surgery
DX: M50.00 Cervical disc disorder with myelopathy, unspecified cervical region (principal)
CPT/HCPCS: 72050

== ENCOUNTER 2020-05-22 12:31 | Outpatient (CLI) | payer MEDICARE, OTHER ==
--- NOTE | 2020-05-22 14:15 | RAD ---
CERVICAL SPINE SERIES: 05/22/20 HISTORY: Follow-up surgery. Neck pain. The vertebral bodies are normal in height. There is an anterior cervical fusion with placement of tanika te and screws extending from C4 to C7. There is a moderate anterolisthesis of C4 on C5 of approximate ly 7 mm. Markers of a disc implant at this level are within the confines of the disc level. Marked di sc narrowing seen at C6-7 and C7-T1 levels. IMPRESSION: Postop changes of the spine and marked arthritic change. POS: [facility]
== END 2020-05-22 12:32 | disposition home or self-care (01) ==
LOC: BICRAD 12:31
PROVIDERS: ATTEND Neurological Surgery
DX: M50.00 Cervical disc disorder with myelopathy, unspecified cervical region (principal); M47.812 Spondylosis without myelopathy or radiculopathy, cervical region; Z98.1 Arthrodesis status
CPT/HCPCS: 72040

== ENCOUNTER 2021-07-02 09:31 | Outpatient (CLI) | payer MEDICARE, MEDICAID | END 2021-07-02 09:32 | disposition home or self-care (01) | LOC: BICMRI 09:31 | PROVIDERS: ATTEND Specialist | DX: M48.02 Spinal stenosis, cervical region (principal); M47.812 Spondylosis without myelopathy or radiculopathy, cervical region; Z98.890 Other specified postprocedural states | CPT/HCPCS: 72141 ==

== ENCOUNTER 2021-12-31 10:43 | Emergency (ER) | payer MEDICAID, MEDICARE ==
[2021-12-31] MEDS ORDERED: HYDROcodone/Acetaminophen 10/325 mg Tablet ONE (12:11)
== END 2021-12-31 12:19 | disposition home or self-care (01) ==
LOC: ERS 10:43
DX: M79.652 Pain in left thigh (principal); M48.00 Spinal stenosis, site unspecified; E11.9 Type 2 diabetes mellitus without complications; I10 Essential (primary) hypertension; J44.9 Chronic obstructive pulmonary disease, unspecified; Z87.891 Personal history of nicotine dependence; Z85.3 Personal history of malignant neoplasm of breast; Z79.899 Other long term (current) drug therapy; X50.1XXA Overexertion from prolonged static or awkward postures, initial encounter

== ENCOUNTER 2022-02-04 11:41 | Outpatient (CLI) | payer MEDICARE, OTHER | END 2022-02-04 11:42 | disposition home or self-care (01) | LOC: SCSMRI 11:41 | PROVIDERS: ATTEND Specialist | DX: M54.50 Low back pain, unspecified (principal); F20.9 Schizophrenia, unspecified; M47.816 Spondylosis without myelopathy or radiculopathy, lumbar region; M47.817 Spondylosis without myelopathy or radiculopathy, lumbosacral region; M47.815 Spondylosis without myelopathy or radiculopathy, thoracolumbar region; M48.061 Spinal stenosis, lumbar region without neurogenic claudication; M48.07 Spinal stenosis, lumbosacral region | CPT/HCPCS: 72148 ==

== ENCOUNTER 2025-03-15 14:58 | Emergency (ER) | payer OTHER ==
[2025-03-15 18:20] LABS: #Basophils 0.04 10x3/uL (0.0-0.2); #Eosinophils 0.14 10x3/uL (0.0-0.7); #Monocytes 0.82 10x3/uL (0.11-0.59); #Neutrophils 5.63 10x3/uL (1.40-6.50); %Basophils 0.5 % (0.0-1.0); %Eosinophils 1.8 % (0.0-10.0); %Lymphocytes 13.8 % (21.0-51.0); %Monocytes 10.6 % (0.0-10.0); %Neutrophils 72.7 % (42.0-75.0); Hematocrit 30.5 % (36.0-47.0); Hemoglobin 9.5 g/dL (12.0-16.0); Mean Corpuscular Hemoglobin 30.4 pg (27.0-31.0); Mean Corpuscular Volume 97.4 fL (78.0-98.0); Platelet Count 565 10x3/uL (130-400); Red Blood Cell (RBC) Count 3.13 mill/uL (4.20-5.40); White Blood Cell (WBC) Count 7.75 10x3/uL (4.8-10.8)
[2025-03-15 18:34] LABS: ALT (SGPT) 8 U/L (Less than 34); AST (SGOT) 21 U/L (11-34); Albumin 3.1 g/dL (3.1-4.5); Alkaline Phosphatase 133 U/L (40-110); Anion Gap 15 mmol/L (10-20); BUN (Urea Nitrogen) 16 mg/dL (9.8-20.1); Bilirubin, Total 0.4 mg/dL (0.3-1.2); CK (CPK) 32 U/L (29-168); Calc. Creatinine Clearance 0 mL/min (70-130); Calcium 9.5 mg/dL (7.8-10.44); Carbon Dioxide 30 mmol/L (23-31); Chloride 96 mmol/L (98-107); Globulin 4.1 g/dL (2.4-3.5); Glucose 93 mg/dL (80-115); Potassium 4.7 mmol/L (3.5-5.1); Sodium 136 mmol/L (136-145)
[2025-03-15 19:21] LABS: CAUTI Indications for Culture Pelvic or flank pain; Glucose, Urine (Dipstick) Normal (Negative); Leukocyte 500 Leu/uL (Negative); Protein, Urine (Dipstick) Negative (Neg-Trace); RBC/HPF None Seen HPF (0-3); Specific Gravity, Urine 1.006 (1.002-1.036)
[2025-03-15 19:25] LABS: Bacteria/HPF 1+ HPF (None Seen)
[2025-03-15 19:26] LABS: Urine Culture Reflex Yes Yes
[2025-03-15] MEDS ORDERED: HYDROcodone/Acetaminophen 5/325 mg Tablet ONE (19:41)
[2025-03-15] MEDS ORDERED: Ketorolac Tromethamine 30 MG (1 mL) VIAL ONE (20:13)
== END 2025-03-15 20:25 | disposition home or self-care (01) ==
LOC: ERS 14:58
DX: M53.3 Sacrococcygeal disorders, not elsewhere classified (principal); N39.0 Urinary tract infection, site not specified; E11.9 Type 2 diabetes mellitus without complications; I10 Essential (primary) hypertension; J44.9 Chronic obstructive pulmonary disease, unspecified; Z87.891 Personal history of nicotine dependence; W01.0XXA Fall on same level from slipping, tripping and stumbling without subsequent striking against object, initial encounter
CPT/HCPCS: 36415; 74176; 80053; 81001; 82550; 85025; 87077; 87086; 96372; J1885

== ENCOUNTER 2025-04-26 12:09 | Outpatient (CLI) | payer OTHER, MEDICAID | END 2025-04-26 12:10 | disposition home or self-care (01) | LOC: BICCT 12:09 | PROVIDERS: ATTEND Neurological Surgery | DX: M48.05 Spinal stenosis, thoracolumbar region (principal); M41.9 Scoliosis, unspecified; M43.25 Fusion of spine, thoracolumbar region; M48.061 Spinal stenosis, lumbar region without neurogenic claudication; M43.24 Fusion of spine, thoracic region; Z98.1 Arthrodesis status | CPT/HCPCS: 72128; 72131 ==